=== PATIENT | male | born 1960 | race Caucasian/White ===

== ENCOUNTER 2019-12-31 15:12 | Outpatient (CLI) | payer OTHER, SELFPAY ==
--- NOTE | ~2019-12-31 | US_ITS ---
US soft tissue groin RT 12/31/2019 15:39 Indication: History of pseudoaneurysm status post repair. Pain at scar site. Procedure: High-resolution Limited ultrasound of the right groin Comparison: No prior studies for comparison. Findings: Normal heterogeneous soft tissues without evidence for pseudoaneurysm, hernia or lymphadeno diego. No abnormal fluid collections. Impression: 1: Normal limited ultrasound of the right groin. Reviewed, dictated and finalized at location A. Impression: 1: Normal limited ultrasound of the right groin.
== END 2019-12-31 15:13 | disposition home or self-care (01) ==
LOC: ANHIMG 15:13
PROVIDERS: PCP Internal Medicine; Visit Provider Nurse Practitioner Adult Health
DX: Z86.79 Personal history of other diseases of the circulatory system (principal)
CPT/HCPCS: 76882

== ENCOUNTER 2020-01-13 01:17 | Outpatient (CLI) | payer OTHER, SELFPAY ==
[2020-01-13 18:41] LABS: SARS-CoV-2 RNA PCR Negative
== END 2020-01-13 01:18 | disposition home or self-care (01) ==
LOC: ANHCOVIDDT 01:18
PROVIDERS: PCP Internal Medicine; Visit Provider Specialist
DX: Z01.812 Encounter for preprocedural laboratory examination (principal); Z11.59 Encounter for screening for other viral diseases
CPT/HCPCS: 87635; C9803; U0003

== ENCOUNTER 2020-01-15 05:53 | Day surgery (SDC) | payer OTHER, SELFPAY ==
[2020-01-14 15:45] VITALS: BMI 31.6
[2020-01-15] VITALS (12 sets, daily range): BP systolic 118–160; BP diastolic 68–87; PULSE 55–74; RESP 14–20; TEMP 36.5–36.6; O2SAT 94–100
[2020-01-15 08:13] LABS: Basophils Absolute Auto 0.1 K/mm3 (0.0-0.1); Eosinophils Absolute Auto 0.1 K/mm3 (0-0.3); Eosinophils Percent Auto 1.6 % (0-4.4); Hematocrit 40.5 % (42.0-52.0); Immature Granulocyte Absolute 0.02 K/mm3 (0.00-0.031); Immature Granulocyte Percent A 0.4 % (0-0.5); Lymphocytes Absolute Auto 0.66 K/mm3 (0.9-3.2); Lymphocytes Percent Auto 13.6 % (18.3-44.2); Mean Corpuscular HGB Conc 34.6 g/dl (32-36); Mean Corpuscular Hemoglobin 32.3 pg (26-34); Mean Corpuscular Volume 93.3 fl (80-100); Mean Platelet Volume 9.3 fl (7.4-10.4); Monocytes Absolute Auto 0.4 K/mm3 (0.1-0.6); Monocytes Percent Auto 8.6 % (2.6-8.5); Neutrophils Absolute Auto 3.6 K/mm3 (1.3-6.7); Neutrophils Percent Auto 74.8 % (45.5-73.1); Platelet Count Result 216 k/mm3 (150-375); Red Blood Count 4.34 M/mm3 (4.6-6.20); Red Cell Distribution Width 13.2 % (11.5-14.5); White Blood Count 4.9 K/mm3 (4.5-10.0)
[2020-01-15 08:24] LABS: Prothrombin Time 12.7 Seconds (11.1-14.7)
--- NOTE | 2020-01-15 08:26 | SUR.PREOP ---
0750-pt presents to the [facility] for an LHC. No distress noted. AOx4. Pt has complained of feeling like his heart is beating out of his chest this morning but no CP noted. PIV started and labs obtained and sent per order. Pt has hx of CABG as well as femoral artery surgery with large scar in right femoral access area. informed. Pt has taken Prednisone and Benadryl this morning. Will continue to monitor.
[2020-01-15 08:28] LABS: Blood Urea Nitrogen 12 mg/dL (9-20); Calcium 9.4 mg/dL (8.4-10.2); Carbon Dioxide 25 mmol/L (22-30); Chloride 106 mmol/L (98-107); Estimated CRCL calculation 97 ml/min; Estimated Glomerular Filt Rate > 60; Glucose 119 mg/dL (75-110); Potassium 4.6 mmol/L (3.4-5.0); Sodium 139 mmol/L (137-145)
--- NOTE | 2020-01-15 10:38 | WPDMODSED ---
Moderate Sedation Note-Pt Data Patient Data Diagnosis: coronary artery disease with previous surgical and percutaneous revascularization recurrent chest pain symptoms concerning for ischemia Present Complaint: 59-year-old patient with history of high-grade disease in the proximal LAD and distal RCA. In 2017 he was referred for surgical revascularization. A HILL was placed to the LAD and a vein graft to the RPDA. A non diseased RPL branch was stented due to recurrent symptoms in 2018. The patient has been doing well recently and now has recurrence of chest pain /to fatigue and shortness of breath once again raising concern regarding the status of his coronary disease. He also has history of atrial fibrillation for which she was treated medically and finally underwent pulmonary vein isolation at another institution and he is successfully maintaining sinus rhythm. Procedure to be performed/Plan: Follow-up coronary angiography, vein graft and AMANDA angiography. Allergies Allergy/AdvReac Type Severity Reaction Status Date / Time demeclocycline Allergy Mild hives Verified 10/11/19 15:03 Iodinated Contrast Media Allergy Mild Redness of Verified 10/11/19 15:03 Skin tramadol AdvReac Severe Anxiety Verified 10/11/19 15:03 Home Medications Medication Instructions Recorded Confirmed Type levothyroxine 50 mcg tablet 50 mcg PO DAILY #90 tablet 08/12/19 01/14/20 Rx alprazolam 0.5 mg tablet 0.5 mg PO BID PRN #60 tablet 08/22/19 01/14/20 Rx atorvastatin 40 mg tablet 40 mg PO DAILY 09/04/19 01/14/20 History clopidogrel 75 mg tablet 75 mg PO DAILY 09/04/19 01/14/20 History furosemide 40 mg tablet 40 mg PO QAM 09/04/19 01/14/20 History nitroglycerin 0.4 mg sublingual 0.4 mg SUBLINGUAL Q5M 09/04/19 01/14/20 History tablet potassium chloride 20 mEq 20 meq PO DAILY 09/04/19 01/14/20 History tablet,extended release rivaroxaban 20 mg tablet 20 mg PO DAILY 09/04/19 01/14/20 History lisinopril 10 mg tablet 10 mg PO DAILY #30 tablet 09/05/19 01/14/20 Rx escitalopram oxalate 20 mg tablet 20 mg PO DAILY #30 tablet 10/11/19 01/14/20 Rx pantoprazole 40 mg tablet,delayed 40 mg PO QAM 10/11/19 01/14/20 History release budesonide-formoterol HFA 160 2 puff INHALATION Q12H #10.2 gm 11/18/19 01/14/20 Rx mcg-4.5 mcg/actuation aerosol inhaler fluticasone propionate 50 2 spray NASAL DAILY PRN #15.8 ml 12/04/19 01/14/20 Rx mcg/actuation nasal spray,suspension valacyclovir 1 gram tablet 2,000 mg PO Q12H #30 tablet 12/04/19 01/14/20 Rx trazodone 50 mg PO QPM 01/14/20 01/14/20 History Current Medications: Active Medications Sodium Chloride (Normal Saline Iv) 500 mls @ 100 mls/hr IV CONT .Q5H LEMUEL Sedation/Anesthesia: No previous sedation/anesthesia problems (including family history). [facility] Social History Social History Smoking status: Never smoker Second hand tobacco smoke exposure: Yes Alcohol intake: current Drinks per week: 1 Substance use: never Living arrangements: with family Gender identity (if verbalized by the patient): Male Spiritual care concerns: No Mod Sed Physical Exam Physical Exam Pre Procedural Exam: Normal: Appearance, Neck, Throat, Airway, Lungs, Heart Size, Heart Rate, Heart Rhythm, Neuro Exam and Extremities Hours since solid foods: 12 Hours since liquid intake: 12 Internal Medicine - PN: Obj Da Vital Signs Vital Signs: Vital Signs - 24 hr 01/15/20 08:35 Temperature 36.6 C Pulse Rate 65 Respiratory Rate 14 Blood Pressure 145/68 H Pulse Oximetry 99 Meds/Results Medications: Active Medications Generic Name Dose Route Start Last Admin Trade Name Freq PRN Reason Stop Dose Admin Sodium Chloride 500 mls @ 100 mls/hr 01/15/20 06:00 Normal Saline Iv IV CONT .Q5H LEMUEL Labs CBC & Chem 7: 01/15/20 08:07 01/15/20 08:07 Labs: Laboratory Results - last 24 hr 01/15/20 01/15/20
--- NOTE | 2020-01-15 11:42 | WPDCARDPROC ---
Cardiac Cath Procedure Note Date of procedure:: 01/15/20 Performing physician:: Nirmal Santa MD Indication:: it chest pain primarily with exertion of recent onset known coronary artery disease previous surgical and percutaneous revascularization Brief clinical history:: this is a 59-year-old man with coronary artery disease diagnosed several years ago. Because of proximal LAD disease and distal disease involving the RCA bifurcation CABG was recommended. He received an internal mammary graft to the LAD as well as a vein graft to the RPDA. The RPL branch which was involved with the area of the disease was not grafted. The year after surgery because of symptoms of ongoing chest pain the are PL lesion was stented through the [place] right coronary artery. He did have a follow-up angiogram about 2 years ago that demonstrated him to be well revascularized. Patient also has a history of problematic atrial fibrillation for which he has undergone ablation with pulmonary vein isolation and is maintaining sinus rhythm. Procedure Procedure performed:: Follow-up coronary angiography vein graft angiography internal mammary graft angiography left ventriculography Sedation/Medication given:: fentanyl 50 mg Versed 4 mg case start time 10:58 a.m. case end time 11:16 a.m. sedation provided byJimi Barr RN, trained observer Access site:: right femoral artery Estimated blood loss:: 15 cc Procedure note:: patient was brought to the cardiac catheterization lab in the postabsorptive state the right femoral triangle was prepared in the normal fashion anesthesia was given 1% lidocaine infiltrated locally. Using the modified Seldinger technique a 5 Somali sheath was placed into the right femoral artery. After this left heart catheterization was carried out. I utilized a 5 Somali angled pigtail catheter to measure left-sided hemodynamics and to injected LV g in the BURTON projection. Following this standard 5 Somali FL4 catheter was used to engage inject the left coronary artery. A 5 Somali JR4 catheter was used to engage inject the right coronary artery, the vein graft to the RCA and the HILL. The cine angiograms were then reviewed. The case was terminated. Use taken to the holding area for manual sheath removal there were no signs of any procedural complications a left chemical laboratory chief with no evidence of a groin hematoma. Findings:: Central aortic pressure 142/80 left ventricle 142 over 3 end-diastolic pressure 12 there is no gradient on pullback across the aortic valve. the left ventricle is normal in size all segments contract appropriately there are no wall motion abnormalities the ejection fraction is visually estimated to be 60%. Left main coronary artery is widely patent the LAD is 100% occluded just after its origin save for a very small high septal perforating branch. The circumflex is a medium caliber artery giving rise to 2 marginal branches. There is minimal luminal irregularity in the circumflex but otherwise the vessel is angiographically non disease. The right coronary artery is a large caliber vessel dominant to the posterior circulation. There are mild luminal irregularities in the trunk of the RCA but no flow-limiting disease is identified. The RPDA receives very little antegrade flow with competitive filling being seen. The RPL branch has a visible previously deployed stent with clear step-up and step-down with excellent deployment no loss of lumen there is good LEX 3 flow in the RPL system. The selective injection of the saphenous vein graft to the right coronary shows that it is a medium caliber segment of saphenous vein. There are mild irregularities in the vein but there are no signs of degenerative atherosclerosis. Its distal anastomosis looks excellent and it fills the RPDA nicely. Selective injection of the left internal mammary artery demonstrates it to be a large caliber segment of AMANDA its course is somewha
--- NOTE | 2020-01-15 17:53 | SUR.PHASEII ---
1745-pt given D/C orders and instructions. Questions answered and verbalized understanding. AOx4. Groin soft and non-tender, no evidence of bleeding or hematoma noted. Strong right pedal pulse noted. Taken via wheelchair to waiting vehicle. No distress noted or verbalized at time of departure.
== END 2020-01-15 17:45 | disposition home or self-care (01) ==
PROVIDERS: PCP Internal Medicine; Visit Provider Specialist
PROC: 4A023N7 Measurement of Cardiac Sampling and Pressure, Left Heart, Percutaneous Approach (ICD-10-PCS; CPT 93452; principal; 2020-01-15 08:30)
DX: I25.10 Atherosclerotic heart disease of native coronary artery without angina pectoris (principal); R07.9 Chest pain, unspecified; I48.0 Paroxysmal atrial fibrillation; Z95.5 Presence of coronary angioplasty implant and graft; Z95.1 Presence of aortocoronary bypass graft; Z79.02 Long term (current) use of antithrombotics/antiplatelets; Z79.01 Long term (current) use of anticoagulants
CPT/HCPCS: 36415; 80048; 85025; 85610; 93458; C1887; C1894; J1644; J2250; J3010; J7040

== ENCOUNTER 2020-05-25 12:40 | Emergency (ER) | payer OTHER, SELFPAY ==
--- NOTE | ~2020-05-25 | XR_ITS ---
EXAMINATION: XR chest 2V EXAM DATE: 05/25/2020 13:34 INDICATION: Syncope. TECHNIQUE: Frontal and lateral projections of the chest obtained and reviewed. Comparison is made to prior examination from 09/27/2018. FINDINGS: Sternotomy wires are present without findings to suggest sternal dehiscence. Right-sided g ranulomata. The lungs are otherwise clear. There are no pleural effusions. The cardiomediastinal si lhouette is within normal limits. There is no pneumothorax suspected. The bones and soft tissues ar e unremarkable. IMPRESSION: No acute cardiopulmonary findings. Reviewed, dictated and finalized at location B. EURISER OPERATOR
--- NOTE | ~2020-05-25 | CT_ITS ---
EXAMINATION: CT cervical spine wo con EXAM DATE: 05/25/2020 13:22 INDICATION: Syncope. Neck pain. TECHNIQUE: Spiral CT of the cervical spine was performed without contrast. Axial images were reviewe d. Coronal and sagittal reformatted images were also reviewed. The dose-length product (DLP) for thi s examination was 491.39 mGy-cm. The exposure was tailored according to patient size (auto mA exposu re control), and iterative reconstruction (ASIR) was used as additional dose reduction technique. ere is no prior study for comparison. FINDINGS: There is no evidence of acute cervical fracture. The odontoid process is intact. Pre-dens space is normal. Prevertebral soft tissue is normal. There are no soft tissue abnormalities identi fied. There is no disc space widening or traumatic vertebral body subluxation suspected. Moderate t o severe cervical spondylosis. A detailed level by level evaluation of spondylosis can be added as a ddendum if requested. IMPRESSION: 1. No acute cervical fracture. 2. Advanced cervical spondylosis. Reviewed, dictated and finalized at location B. CT SUPPORT STAFF
--- NOTE | ~2020-05-25 | CT_ITS ---
EXAMINATION: CT brain wo con DATE: 05/25/2020 13:21 INDICATION: Syncope. TECHNIQUE: Computed tomography (CT) of the head was performed without intravenous contrast. The mA wa s adjusted according to patient size. Iterative reconstruction technique was employed. The dose-lengt h product was 605.33 mGy-cm. COMPARISON: Head CT 09/27/2018 FINDINGS: There is no intracranial hemorrhage, acute infarction, or abnormal intracranial mass lesion . The ventricles are normal in size. There is mild mucosal thickening in the paranasal sinuses. There are surgical changes of the paranasal sinuses. The mastoid air cells are normal. The orbits are norm al. IMPRESSION: 1. Normal brain. Reviewed, dictated and finalized at location A. NEEDLE MACHINE OPERATOR IMPRESSION: 1. Normal brain.
--- NOTE | ~2020-05-25 | CT_ITS ---
EXAMINATION: CT lumbar spine wo con DATE: 05/25/2020 13:22 INDICATION: Low back pain. Fall. TECHNIQUE: Computed tomography (CT) of the lumbar spine was performed without intravenous contrast. A utomated exposure control and iterative reconstruction technique were employed. The dose-length produ ct was 1159.65 mGy-cm. COMPARISON: None FINDINGS: There is a 1.6 cm cyst in right kidney. Bone alignment is normal. Vertebral body heights ar e normal. There is moderately decreased disc height at L4-L5 with endplate remodeling. The following disc levels are specifically discussed: L1-L2: The disc does not extend beyond the endplate margin. There is mild bilateral facet joint osteo arthritis. There is no neural foraminal stenosis. There is no central canal stenosis. L2-L3: The disc is mildly bulging. There is severe right and moderate left facet joint osteoarthritis . There is mild bilateral neural foraminal stenosis. There is no central canal stenosis. L3-L4: The disc is bulging. There is severe right and moderate left facet joint osteoarthritis. There is moderate bilateral neural foraminal stenosis. There is moderate central canal stenosis. L4-L5: The disc is bulging. There is severe bilateral facet joint osteoarthritis. There is moderate b ilateral neural foraminal stenosis. There is moderate central canal stenosis. L5-S1: The disc is bulging. There is severe bilateral facet joint osteoarthritis. There is mild bilat eral neural foraminal stenosis. There is mild central canal stenosis. IMPRESSION: 1. No fracture. 2. Moderate lumbar spondylosis. Reviewed, dictated and finalized at location A. COMMUNICATIONS SPECIALIST
[2020-05-25 12:42] VITALS: BP 165/91; PULSE 66; RESP 17; TEMP 36.3; O2SAT 100
--- NOTE | 2020-05-25 12:48 | ECG_ITS ---
Measurements Intervals [place] Rate: 64 P: 41 VT: 171 QRS: 4 QRSD: 113 T: 61 QT: 436 QTc: 450 Interpretive Statements SINUS RHYTHM INTRAVENTRICULAR CONDUCTION DELAY BORDERLINE R WAVE PROGRESSION, ANTERIOR LEADS BORDERLINE ST-T WAVE ABNORMALITY- HIGH LATERAL LEADS BORDERLINE ECG Electronically Signed On 05-25-2020 13:27:28 MANAGER OF WAREHOUSE by Jairo Phelps D.O.
--- NOTE | 2020-05-25 12:52 | ED.SYNCOPE ---
HPI - Syncope General Chief Complaint: Syncope Stated Complaint: Passed out Sat, Hit Head Time Seen by Provider: 05/25/20 12:51 Source: patient Mode of arrival: ambulatory Limitations: no limitations History of Present Illness HPI narrative: Patient is a 60-year-old gentleman with a history of coronary artery disease, atrial fibrillation on Xarelto, who presents for evaluation of fall and a head injury. Patient states that Monday night he was lying down watching television, when he stood up, attempted to walk to his bedroom, and passed out. Patient states he remembers waking up on the floor and that he had hit his head quite hard. Patient reports feeling mentally a bit foggy, but family did not report any slurred speech, or permanent altered mental status. Patient denies any current vision changes, nausea or vomiting. He reports soreness in his tailbone, head and neck. He denies any current numbness or weakness. Given his anticoagulation, the cardiology office the patient follows with advised him to come to an emergency department. Patient denies any chest pain or shortness of breath. Patient does endorse that he sat on the side of the couch before he stood up to ensure that he would not pass out. Patient states he has no history of syncope in the past. Related Data Home Medications Medication Instructions Recorded Confirmed atorvastatin 40 mg tablet 40 mg PO DAILY 09/04/19 01/14/20 clopidogrel 75 mg tablet 75 mg PO DAILY 09/04/19 01/14/20 furosemide 40 mg tablet 40 mg PO QAM 09/04/19 01/14/20 nitroglycerin 0.4 mg sublingual 0.4 mg SUBLINGUAL Q5M 09/04/19 01/14/20 tablet potassium chloride 20 mEq 20 meq PO DAILY 09/04/19 01/14/20 tablet,extended release rivaroxaban 20 mg tablet 20 mg PO DAILY 09/04/19 01/14/20 pantoprazole 40 mg tablet,delayed 40 mg PO QAM 10/11/19 01/14/20 release trazodone 50 mg PO QPM 01/14/20 01/14/20 Allergies Allergy/AdvReac Type Severity Reaction Status Date / Time demeclocycline Allergy Mild hives Verified 05/25/20 12:45 Iodinated Contrast Media Allergy Mild Redness of Verified 05/25/20 12:45 Skin tramadol AdvReac Severe Anxiety Verified 05/25/20 12:45 Review of Systems Review of Systems: Narrative: CONSTITUTIONAL: Denies fever, chills, or sweats. EYES: Denies visual changes, redness, or discharge. ENT: Denies rhinorrhea, congestion, sore throat, or otalgia. CARDIOVASCULAR: Denies chest pain, palpitations, or edema. RESPIRATORY: Denies cough or dyspnea. GASTROINTESTINAL: Denies abdominal pain, nausea, vomiting, or diarrhea. GENITOURINARY: Denies dysuria or hematuria. SKIN: Denies rash or itching. MUSCULOSKELETAL: Reports lower back pain, denies knee or elbow pain NEUROLOGIC: Reports headache, denies numbness or weakness PMFSH Family History Family History Sibling Family history of malignant neoplasm of breast in first degree relative Mother Family history of malignant neoplasm of breast in first degree relative Patient's mother is Father Patient's father is Family history of heart disease in male family member before age 55 Social History Social History Smoking status: Never smoker Second hand tobacco smoke exposure: Yes Alcohol intake: current Drinks per week: 1 Substance use: never Gender identity (if verbalized by the patient): Male Spiritual care concerns: No Exam Narrative: Exam Narrative: Nursing note and vitals reviewed. CONSTITUTIONAL: The patient appears well-developed and well-nourished. No distress. HEAD: Normocephalic and atraumatic. No hematoma or contusion. EYES: 2+ PERRL, EOMI, normal conjunctiva, anicteric EARS: External ears clear bilaterally, no hemotympanum MOUTH: OP clear, no erythema, exudates NECK: midline trachea, supple, FROM. No midline cervical spinal tenderness. CARDIOVASCULAR: Normal ra
[2020-05-25 13:16] VITALS: PULSE 78
[2020-05-25 13:16] LABS: Basophils Absolute Auto 0.1 K/mm3 (0.0-0.1); Basophils Percent Auto 0.8 % (0.2-1.2); Eosinophils Absolute Auto 0.2 K/mm3 (0-0.3); Eosinophils Percent Auto 3.1 % (0-4.4); Hematocrit 40.2 % (42.0-52.0); Hemoglobin 14.2 g/dL (14.0-18.0); Immature Granulocyte Absolute 0.01 K/mm3 (0.00-0.031); Immature Granulocyte Percent A 0.2 % (0-0.5); Lymphocytes Absolute Auto 1.35 K/mm3 (0.9-3.2); Lymphocytes Percent Auto 22.1 % (18.3-44.2); Mean Corpuscular HGB Conc 35.3 g/dl (32-36); Mean Corpuscular Hemoglobin 33.5 pg (26-34); Mean Corpuscular Volume 94.8 fl (80-100); Mean Platelet Volume 9.3 fl (7.4-10.4); Monocytes Absolute Auto 0.6 K/mm3 (0.1-0.6); Monocytes Percent Auto 9.7 % (2.6-8.5); Neutrophils Absolute Auto 3.9 K/mm3 (1.3-6.7); Neutrophils Percent Auto 64.1 % (45.5-73.1); Platelet Count Result 245 k/mm3 (150-375); Red Blood Count 4.24 M/mm3 (4.6-6.20); Red Cell Distribution Width 13.2 % (11.5-14.5); White Blood Count 6.1 K/mm3 (4.5-10.0)
[2020-05-25 13:26] LABS: INR 1.6; Partial Thromboplastin Time 31.5 SECONDS (22.3-36.8); Prothrombin Time 19.3 Seconds (11.1-14.7)
[2020-05-25 13:29] LABS: Anion Gap 9 mmol/L (8-16); Blood Urea Nitrogen 13 mg/dL (9-20); Calcium 9.2 mg/dL (8.4-10.2); Carbon Dioxide 27 mmol/L (22-30); Chloride 102 mmol/L (98-107); Estimated CRCL calculation 95 ml/min; Estimated Glomerular Filt Rate > 60; Glucose 112 mg/dL (75-110); Potassium 3.8 mmol/L (3.4-5.0); Sodium 138 mmol/L (137-145)
[2020-05-25 13:58] LABS: D Dimer 0.27 ug/mL (<0.48)
[2020-05-25 14:06] LABS: Troponin I < 0.012 ng/mL (0.000-0.034)
[2020-05-25 14:34] VITALS: BP 130/74; PULSE 54; RESP 16; O2SAT 98
== END 2020-05-25 14:42 | disposition home or self-care (01) ==
PROVIDERS: Emergency Provider Emergency Medicine; PCP Internal Medicine
DX: R55 Syncope and collapse (principal); I25.10 Atherosclerotic heart disease of native coronary artery without angina pectoris; I48.91 Unspecified atrial fibrillation; Z79.01 Long term (current) use of anticoagulants; Z77.22 Contact with and (suspected) exposure to environmental tobacco smoke (acute) (chronic); M47.816 Spondylosis without myelopathy or radiculopathy, lumbar region; M47.812 Spondylosis without myelopathy or radiculopathy, cervical region
CPT/HCPCS: 36415; 70450; 71046; 72125; 72131; 80048; 84484; 85025; 85380; 85610; 85730; 93005; 99284

== ENCOUNTER 2021-03-30 12:56 | Emergency (ER) | payer OTHER, SELFPAY ==
[2021-03-30 13:19] VITALS: BP 160/82; PULSE 72; RESP 20; TEMP 36.2; O2SAT 99
[2021-03-30 13:35] LABS: Basophils Absolute Auto 0.1 K/mm3 (0.0-0.1); Basophils Percent Auto 1.4 % (0.2-1.2); Eosinophils Absolute Auto 0.3 K/mm3 (0-0.3); Eosinophils Percent Auto 3.5 % (0-4.4); Hematocrit 40.4 % (42.0-52.0); Hemoglobin 13.9 g/dL (14.0-18.0); Immature Granulocyte Absolute 0.04 K/mm3 (0.00-0.031); Immature Granulocyte Percent A 0.6 % (0-0.5); Lymphocytes Absolute Auto 1.09 K/mm3 (0.9-3.2); Lymphocytes Percent Auto 15.4 % (18.3-44.2); Mean Corpuscular HGB Conc 34.4 g/dl (32-36); Mean Corpuscular Hemoglobin 33.4 pg (26-34); Mean Corpuscular Volume 97.1 fl (80-100); Mean Platelet Volume 8.9 fl (7.4-10.4); Monocytes Absolute Auto 0.6 K/mm3 (0.1-0.6); Monocytes Percent Auto 7.9 % (2.6-8.5); Neutrophils Absolute Auto 5.1 K/mm3 (1.3-6.7); Neutrophils Percent Auto 71.2 % (45.5-73.1); Platelet Count Result 237 k/mm3 (150-375); Red Blood Count 4.16 M/mm3 (4.6-6.20); White Blood Count 7.1 K/mm3 (4.5-10.0)
[2021-03-30 13:44] LABS: INR 1.8; Prothrombin Time 20.4 Seconds (11.1-14.7)
[2021-03-30 15:26] VITALS: BP 126/80; PULSE 68; O2SAT 98
--- NOTE | 2021-03-30 17:51 | ECG_ITS ---
Measurements Intervals [place] Rate: 60 P: 61 ME: 165 QRS: 6 QRSD: 122 T: 73 QT: 452 QTc: 453 Interpretive Statements SINUS RHYTHM INTRAVENTRICULAR CONDUCTION DELAY DELAYED PRECORDIAL R/S TRANSITION BORDERLINE ST-T WAVE ABNORMALITY- HIGH LATERAL LEADS BASELINE ARTIFACT- I, III, AVR, AVL BORDERLINE ECG Electronically Signed On 03-30-2021 20:21:49 CDT by Jairo Phelps D.O.
[2021-03-30 17:55] VITALS: BP 124/91; PULSE 68; RESP 18; TEMP 36.3; O2SAT 98
[2021-03-30 18:05] LABS: Add Urine Microscopic? YES; Appearance Urine Cloudy (Clear); Bilirubin Urine Negative (Negative); Blood Urine 2+ (Negative); Color Urine Red (Yellow); Glucose Urine UA Negative (Negative); Ketones Urine Negative (Negative); Leukocyte Esterase Ur Negative LEU/UL (Negative); Nitrate Urine Negative (Negative); Protein Urine 2+ mg/dL (Negative); RBC Urine >75 /hpf (0-2); Specific Grav Ur 1.019 (1.001-1.035); Urobilinogen Urine Negative mg/dL (<2.0); WBC Urine 0-3 /hpf
--- NOTE | 2021-03-30 18:07 | ED.MALEGU ---
HPI - Male Genitourinary General Chief complaint: Urogenital-Male Stated complaint: Blood in Urine Time Seen by Provider: 03/30/21 17:33 Source: patient Mode of arrival: ambulatory Limitations: no limitations History of Present Illness HPI Narrative: 61 years old white male presented to the ED with urinary frequency and gradually noticed increase in the amount of blood in the urine. Patient denies any fever, chills, nausea, vomiting, abdominal pain or back pain. Patient on Plavix for coronary stents and Xarelto for atrial fibrillation. Patient had cardiac ablation 2 weeks ago. Currently have normal sinus rhythm. Related Data Home Medications Medication Instructions Recorded Confirmed atorvastatin 40 mg tablet 40 mg PO DAILY 09/04/19 01/12/21 clopidogrel 75 mg tablet 75 mg PO DAILY 09/04/19 01/12/21 furosemide 40 mg tablet 40 mg PO QAM 09/04/19 01/12/21 nitroglycerin 0.4 mg sublingual 0.4 mg SUBLINGUAL Q5M 09/04/19 01/12/21 tablet potassium chloride 20 mEq 20 meq PO DAILY 09/04/19 01/12/21 tablet,extended release Allergies Allergy/AdvReac Type Severity Reaction Status Date / Time demeclocycline Allergy Mild hives Verified 01/12/21 16:31 Iodinated Contrast Media Allergy Mild Redness of Verified 01/12/21 16:31 Skin tramadol AdvReac Severe Anxiety Verified 01/12/21 16:31 Review of Systems Review of Systems: CONSTITUTIONAL: Denies fever, chills, or sweats. EYES: Denies visual changes, redness, or discharge. ENT: Denies rhinorrhea, congestion, sore throat, or otalgia. CARDIOVASCULAR: Denies chest pain, palpitations, or edema. RESPIRATORY: Denies cough or dyspnea. GASTROINTESTINAL: Denies abdominal pain, nausea, vomiting, or diarrhea. GENITOURINARY: Denies dysuria or hematuria. SKIN: Denies rash or itching. MUSCULOSKELETAL: Denies back pain, joint pain, or myalgia. NEUROLOGIC: Denies headache, numbness, or weakness. PSYCHIATRIC: Denies anxiety or depression. 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 Family History Family History Sibling Family history of malignant neoplasm of breast in first degree relative Mother Family history of malignant neoplasm of breast in first degree relative Patient's mother is Father Patient's father is Family history of heart disease in male family member before age 55 Social History Social History Smoking status: Never smoker Second hand tobacco smoke exposure: Yes Alcohol intake: current Drinks per week: 1 Substance use: never Gender identity (if verbalized by the patient): Male Spiritual care concerns: No Exam Narrative: General appearance: Well-developed, well-nourished Skin: Normal color Head: Normocephalic, nontraumatic Eyes: Clear conjunctiva ENT: Oropharynx normal, ears normal, nose normal Neck: Supple, nontender Chest and respiratory: Airway patent, no respiratory distress, no accessory muscle use Heart: Regular rate/rhythm Abdomen: Soft, nontender, no organomegaly, quiet bowel sounds Vascular: Normal peripheral pulses, normal capillary refill. Musculoskeletal: Normal range of motion, nontender back Neurologic: Alert and oriented ?3, JUNIOR ENGINEER is normal as tested, no gross motor deficit Course Course Emergency Course: Stable Consultations Consultation #1: Dr. Mcclellan Stop Plavix, Stop Xarelto for 1 week. Call office for evaluation Date: 03/30/21 Time: 18:54 Vital Signs Vital signs: Vital Signs Temperature 36.2 C L 03/30
[2021-03-30 18:22] LABS: Anion Gap 9 mmol/L (8-16); Blood Urea Nitrogen 20 mg/dL (9-20); Calcium 9.3 mg/dL (8.4-10.2); Carbon Dioxide 25 mmol/L (22-30); Chloride 105 mmol/L (98-107); Estimated CRCL calculation 79 ml/min; Estimated Glomerular Filt Rate > 60; Glucose 128 mg/dL (65-110); Potassium 4.1 mmol/L (3.4-5.0); Sodium 139 mmol/L (137-145)
== END 2021-03-30 19:00 | disposition home or self-care (01) ==
PROVIDERS: Emergency Medicine; Emergency Provider Emergency Medicine; PCP Internal Medicine
DX: R31.9 Hematuria, unspecified (principal); T45.515A Adverse effect of anticoagulants, initial encounter; I48.91 Unspecified atrial fibrillation; Z95.5 Presence of coronary angioplasty implant and graft; Z79.01 Long term (current) use of anticoagulants; Z79.02 Long term (current) use of antithrombotics/antiplatelets; Z77.22 Contact with and (suspected) exposure to environmental tobacco smoke (acute) (chronic); I45.9 Conduction disorder, unspecified; R94.31 Abnormal electrocardiogram [ECG] [EKG]
CPT/HCPCS: 36415; 80048; 81001; 85025; 85610; 93005; 99283

== ENCOUNTER → 2021-04-06 12:49 | Outpatient (CLI) | payer OTHER, SELFPAY ==
--- NOTE | ~2021-04-06 | XR_ITS ---
EXAMINATION: CT abdomen pelvis wo/w con, XR abdomen/kub 1V DATE: 04/06/2021 14:08 INDICATION: Gross hematuria. Right upper quadrant abdominal pain. TECHNIQUE: 1. Computed tomography (CT) of the abdomen and pelvis was performed without intravenous contrast. CT of the abdomen and pelvis was then performed with a total of 130 mL Omnipaque-350 intravenous contras t using a double-bolus technique for simultaneous opacification of the renal parenchyma and renal col lecting system. Automated exposure control and iterative reconstruction technique were employed. The dose-length product was 2431.13 mGy-cm. 2. AP supine view of the abdomen and pelvis was obtained on 2 radiographs. COMPARISON: None FINDINGS: CT UROGRAM: Lung bases are clear. Mild cardiomegaly. Small amount of atherosclerotic coronary artery calcificatio n along the right coronary artery and postoperative change of prior median sternotomy and coronary ar anthony bypass grafting to the right coronary artery. No pericardial or pleural effusion. Small sliding- type hiatal hernia with postoperative change of prior Lorie fundoplication. Scattered small hepatic and splenic calcifications consistent with old granulomatous disease. Gallbladder, pancreas and bilat eral adrenal glands are normal. Bilateral low-attenuation nonenhancing renal cysts measuring 2 cm on the right and 1.7 cm on the left. Kidneys and ureters are otherwise normal with no urolithiasis, hydr oureteronephrosis or perinephric/ureteral stranding. The proximal to mid right ureter and entire left ureter are opacified on the delayed images and demonstrate no filling defects or urothelial irregula rities along the contrast opacified portions of the bilateral ureters and renal collecting systems. B ladder is normal. Mildly enlarged prostate measuring 4.3 x 3.7 cm. Bowels including the appendix are normal. No free intraperitoneal gas or fluid. No pathologically enlarged abdominal or pelvic lymphade nopathy. ABDOMEN RADIOGRAPH(S): There are few phleboliths in the pelvis. No urolithiasis. No dilated bowel to suggest obstruction. IMPRESSION: 1. Bilateral renal cysts. Otherwise unremarkable bilateral kidneys and ureters with no urolithiasis o r lesions suspicious for malignancy. 2. Small sliding-type hiatal hernia with change of prior Lorie fundoplication. 3. Mild prostatomegaly. Reviewed, dictated and finalized at location B. IMPRESSION: 1. Bilateral renal cysts. Otherwise unremarkable bilateral kidneys and ureters with no urolithiasis or lesions suspicious for malignancy. 2. Small sliding-type hiatal hernia with change of prior Lorie fundoplication. 3. Mild prostatomegaly.
[2021-04-06 13:33] LABS: Estimated Glomerular Filt Rate > 60
== END ==
PROVIDERS: PCP Internal Medicine; Visit Provider Nurse Practitioner Adult Health
DX: R31.0 Gross hematuria (principal); N28.1 Cyst of kidney, acquired; K44.9 Diaphragmatic hernia without obstruction or gangrene; N40.0 Benign prostatic hyperplasia without lower urinary tract symptoms
CPT/HCPCS: 74018; 74178; Q9967

== ENCOUNTER 2021-05-20 01:18 | Day surgery (SDC) | payer OTHER, SELFPAY ==
[2021-05-10 13:09] VITALS: BMI 31.1
[2021-05-20 08:54] VITALS: BP 166/81; PULSE 58; RESP 18; TEMP 36.7; O2SAT 96
[2021-05-20] MEDS: LACTATED RINGERS 1,000 ML 150 ML IV CONT (09:10)
--- NOTE | 2021-05-20 09:15 | WPDGICN ---
Assessment and Plan Assessment and plan (1) Encounter for screening colonoscopy: Code(s): Z12.11 - Encounter for screening for malignant neoplasm of colon Status: Acute Assessment and Plan: Patient presents today for screening colonoscopy. Last exam 10 years ago was unremarkable. Further recommendations will be given after endoscopy. GI Consult Note Consult date/time: 05/20/21 09:15 HPI: Yazan Cordoba is a 61 year old male Presents for screening colonoscopy. Patient's last exam was more than 10 years ago. Patient reports his weight appetite bowel movements are normal. He denies abdominal pain. He has had no bleeding. Past medical history is significant for atherosclerotic heart disease. He underwent bypass surgery 5 years ago. 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 Family History Family History Sibling Family history of malignant neoplasm of breast in first degree relative Mother Family history of malignant neoplasm of breast in first degree relative Patient's mother is Father Patient's father is Family history of heart disease in male family member before age 55 Social History Social History Smoking status: Never smoker Second hand tobacco smoke exposure: Yes Alcohol intake: current Drinks per week: 8 Substance use: never Substance use type: does not use Living arrangements: with family Gender identity (if verbalized by the patient): Male Spiritual care concerns: No Meds Home Medications and Allergies Home Medications Medication Instructions Recorded Confirmed Type atorvastatin 40 mg tablet 40 mg PO DAILY 09/04/19 05/20/21 History clopidogrel 75 mg tablet 75 mg PO DAILY 09/04/19 05/20/21 History furosemide 40 mg tablet 40 mg PO QAM 09/04/19 05/20/21 History nitroglycerin 0.4 mg sublingual 0.4 mg SUBLINGUAL Q5M 09/04/19 05/20/21 History tablet potassium chloride 20 mEq 20 meq PO DAILY 09/04/19 05/20/21 History tablet,extended release fluticasone propionate 50 2 spray NASAL DAILY PRN #15.8 ml 11/23/20 05/20/21 Rx mcg/actuation nasal spray,suspension budesonide-formoterol HFA 160 2 puff INHALATION Q12H #10.2 gm 01/16/21 05/20/21 Rx mcg-4.5 mcg/actuation aerosol inhaler escitalopram oxalate 20 mg tablet 20 mg PO DAILY #90 tablet 02/22/21 05/20/21 Rx alprazolam 0.5 mg tablet 0.5 mg PO BID PRN #60 tablet 04/07/21 05/20/21 Rx finasteride 5 mg tablet 5 mg PO DAILY 04/07/21 05/20/21 History tamsulosin 0.4 mg capsule 0.4 mg PO DAILY 04/07/21 05/20/21 History lisinopril 20 mg tablet 20 mg PO DAILY #90 tablet 04/17/21 05/20/21 Rx trazodone 50 mg tablet See Rx Instructions .ROUTE 04/17/21 05/20/21 Rx .COMPLEX #180 tablet levothyroxine 50 mcg tablet 50 mcg PO DAILY #90 tablet 05/10/21 05/20/21 Rx metoprolol succinate 25 mg PO DAILY 05/10/21 05/20/21 History rivaroxaban [Xarelto] 20 mg PO DAILY 05/10/21 05/20/21 History Allergies Allergy/AdvReac Type Severity Reaction Status Date / Time demeclocycline Allergy Intermediate hives Verified 05/20/21 08:54 Iodinated Contrast Media Allergy Mild Redness of Verified 05/20/21 08:54 Skin tramadol AdvReac Severe Anxiety Verified 05/20/21 08:54 Vital Signs Vital Signs - 24 hr 05/20/21 08:54 Temperature 98.0 F Pulse Rate 58 L Respiratory Rate 18 Blood Pressure 166/81 H Pulse Oximetry 96 Exam Narrative: Physical exam reveals patient be alert. Vital signs stable. HEENT exam is unremarkable. Patient is anicteric. Lungs are clear to auscultation and percussion. Heart is without murmur or extra sounds. Abdominal exam bow
--- NOTE | 2021-05-20 09:23 | WPDANESEPPF ---
Anes - Initial Pre Proc Eval Procedure: Operation Date: 05/20/21 09:30 Proposed Procedures p Screening Colonoscopy - Ethan Rock MD Date/Time: 05/20/21 09:23 Surgeon: Ethan Rock MD Pre Op Diagnosis: neoplasm screening Patient Data Age: 61 Gender: M Height: 1.93 m Weight: 119.2 kg Last Vital Signs Temp 36.7 C 05/20/21 08:54 Pulse 58 L 05/20/21 08:54 Resp 18 05/20/21 08:54 BP 166/81 H 05/20/21 08:54 Pulse Ox 96 05/20/21 08:54 Allergies Allergy/AdvReac Type Severity Reaction Status Date / Time demeclocycline Allergy Intermediate hives Verified 05/20/21 08:54 Iodinated Contrast Media Allergy Mild Redness of Verified 05/20/21 08:54 Skin tramadol AdvReac Severe Anxiety Verified 05/20/21 08:54 Home Medications Medication Instructions Recorded Confirmed Type atorvastatin 40 mg tablet 40 mg PO DAILY 09/04/19 05/20/21 History clopidogrel 75 mg tablet 75 mg PO DAILY 09/04/19 05/20/21 History furosemide 40 mg tablet 40 mg PO QAM 09/04/19 05/20/21 History nitroglycerin 0.4 mg sublingual 0.4 mg SUBLINGUAL Q5M 09/04/19 05/20/21 History tablet potassium chloride 20 mEq 20 meq PO DAILY 09/04/19 05/20/21 History tablet,extended release fluticasone propionate 50 2 spray NASAL DAILY PRN #15.8 ml 11/23/20 05/20/21 Rx mcg/actuation nasal spray,suspension budesonide-formoterol HFA 160 2 puff INHALATION Q12H #10.2 gm 01/16/21 05/20/21 Rx mcg-4.5 mcg/actuation aerosol inhaler escitalopram oxalate 20 mg tablet 20 mg PO DAILY #90 tablet 02/22/21 05/20/21 Rx alprazolam 0.5 mg tablet 0.5 mg PO BID PRN #60 tablet 04/07/21 05/20/21 Rx finasteride 5 mg tablet 5 mg PO DAILY 04/07/21 05/20/21 History tamsulosin 0.4 mg capsule 0.4 mg PO DAILY 04/07/21 05/20/21 History lisinopril 20 mg tablet 20 mg PO DAILY #90 tablet 04/17/21 05/20/21 Rx trazodone 50 mg tablet See Rx Instructions .ROUTE 04/17/21 05/20/21 Rx .COMPLEX #180 tablet levothyroxine 50 mcg tablet 50 mcg PO DAILY #90 tablet 05/10/21 05/20/21 Rx metoprolol succinate 25 mg PO DAILY 05/10/21 05/20/21 History rivaroxaban [Xarelto] 20 mg PO DAILY 05/10/21 05/20/21 History Patient hx anesthesia problems: none Family hx anesthesia problems: none Results Review: All pre-operative results and documents have been reviewed as part of the pre-operative evaluation. [facility] Past Medical History Medical History (Updated 05/20/21 @ 09:25 by Aba Weiss MD) Anxiety Arthritis of right elbow Asthma Coronary artery disease Essential (primary) hypertension Fatigue Heart disease Hematuria Hypothyroidism Increased BMI Neuritis of right ulnar nerve FRANCISCO (obstructive sleep apnea) Thyroid disorder Family History Family History Sibling Family history of malignant neoplasm of breast in first degree relative Mother Family history of malignant neoplasm of breast in first degree relative Patient's mother is Father Patient's father is Family history of heart disease in male family member before age 55 Social History Social History Smoking status: Never smoker Second hand tobacco smoke exposure: Yes Alcohol intake: current Drinks per week: 8 Substance use: never Substance use type: does not use Living arrangements: with family Gender identity (if verbalized by the patient): Male Spiritual care concerns: No Anes - Eval Final PreProcedure Day of Procedure 05/20/21 09:23 Patient weight: obese Heart: regular rate and rhythm Lungs: clear to auscultation and normal air movement Airway: Mallampati scale class II Neurological: alert and oriented Last oral intake: >/= 8 hours ASA classification: III Emergent: no Anesthetic plan: proceed Anesthesia type and monitoring: general GIVS Results Review: All pre-operative results and documents have been reviewed as part of the
[2021-05-20 09:46] VITALS: BP 141/61; PULSE 54; RESP 17; O2SAT 96
[2021-05-20 10:05] VITALS: BP 138/64; PULSE 54; RESP 17; O2SAT 96
[2021-05-20 10:06] VITALS: BP 142/70; PULSE 50; RESP 17; O2SAT 96
== END 2021-05-20 10:15 | disposition home or self-care (01) ==
PROVIDERS: PCP Internal Medicine; Visit Provider Internal Medicine Gastroenterology
PROC: 0DJD8ZZ Inspection of Lower Intestinal Tract, Via Natural or Artificial Opening Endoscopic (ICD-10-PCS; CPT 45378; principal; 2021-05-20 09:30)
DX: Z12.11 Encounter for screening for malignant neoplasm of colon (principal); K64.8 Other hemorrhoids; D12.5 Benign neoplasm of sigmoid colon; D12.3 Benign neoplasm of transverse colon; E03.9 Hypothyroidism, unspecified; M19.90 Unspecified osteoarthritis, unspecified site; J45.909 Unspecified asthma, uncomplicated; I25.10 Atherosclerotic heart disease of native coronary artery without angina pectoris; I11.9 Hypertensive heart disease without heart failure; G47.33 Obstructive sleep apnea (adult) (pediatric); E66.9 Obesity, unspecified; Z68.32 Body mass index [BMI] 32.0-32.9, adult
CPT/HCPCS: 45385; 88305; J2704; J7120

== ENCOUNTER 2021-10-27 13:41 | Observation (INO) | payer OTHER, SELFPAY ==
[2021-10-27] VITALS (11 sets, daily range): BP systolic 133–171; BP diastolic 77–88; PULSE 56–75; RESP 12–18; TEMP 36.7–37.1; O2SAT 96–99; BMI 32.1
--- NOTE | ~2021-10-27 | XR_ITS ---
EXAMINATION: XR chest 2V DATE: 10/27/2021 14:16 INDICATION: Hypertension TECHNIQUE: PA and lateral views of the chest are obtained. COMPARISON: 05/25/2020 FINDINGS: The lungs are free of acute opacities. There is no pleural effusion or pneumothorax. The ca rdiomediastinal silhouette is normal. There is mild thoracic spondylosis. Median sternotomy wires and mediastinal surgical clips are seen, likely from prior coronary artery bypass grafting. Calcified pu lmonary nodules are consistent with old granulomatous disease. IMPRESSION: 1. No acute cardiopulmonary abnormality. Reviewed, dictated and finalized at location F.
--- NOTE | ~2021-10-27 | US_ITS ---
EXAMINATION: US retroperitoneal duplex ltd DATE: 10/28/2021 11:44 INDICATION: hypertension TECHNIQUE: Multiple grayscale, color Doppler, and pulsed Doppler images of the kidneys and renal jhon liberty were obtained. COMPARISON: CT abdomen and pelvis dated 04/06/2021 FINDINGS: The aorta peak systolic velocity is 142 cm/s. The right renal artery peak systolic velocity is 51 cm/ s in the proximal segment, 71 cm/s in the mid segment, and 87 cm/s in the distal segment. The left re nal artery peak systolic velocity is 86 cm/s in the proximal segment, 74 cm/s in the mid segment, and 145 cm/s in the distal segment. IMPRESSION: 1. No Doppler evidence of renal artery stenosis. Reviewed, dictated and finalized at location B.
--- NOTE | ~2021-10-27 | NM_ITS ---
EXAMINATION: NM daniel stress w perfusion DATE: 10/28/2021 11:29 INDICATION: Coronary artery disease presenting with chest pain TECHNIQUE: Rest images were obtained following intravenous administration of 10 mCi Tc99m tetrofosmin (Myoview). The patient was infused intravenously with Lexiscan (Regadenoson). Then, 29 mCi Tc99m tet rofosmin (Myoview) was administered intravenously, and stress images were obtained. Data was reconstr ucted into short axis and horizontal and vertical long axis SPECT images. Gated SPECT images were als o obtained. COMPARISON: None. FINDINGS: There is no definite reversible or fixed perfusion abnormality to suggest ischemia or infar ction. There is normal left ventricular chamber size, wall motion and ejection fraction. Left ventr icular ejection fraction measures 62%. IMPRESSION: 1. Normal myocardial perfusion at rest and during stress. 2. Left ventricular ejection fraction measuring 62%. Reviewed, dictated and finalized at location B.
--- NOTE | 2021-10-27 13:43 | ECG_ITS ---
Measurements Intervals [place] Rate: 72 P: 70 MS: 173 QRS: 16 QRSD: 107 T: 68 QT: 414 QTc: 454 Interpretive Statements SINUS RHYTHM NONSPECIFIC T-WAVE ABNORMALITY COMPARED TO ECG 03/30/2021 18:01:47 T-WAVE ABNORMALITY NOW PRESENT Electronically Signed On 10-27-2021 20:10:41 CDT by Ariadna Mcclellan M.D.
[2021-10-27 14:09] LABS: Basophils Absolute Auto 0.1 K/mm3 (0.0-0.1); Basophils Percent Auto 1.1 % (0.2-1.2); Eosinophils Absolute Auto 0.3 K/mm3 (0-0.3); Hematocrit 42.2 % (42.0-52.0); Hemoglobin 14.5 g/dL (14.0-18.0); Immature Granulocyte Absolute 0.02 K/mm3 (0.00-0.031); Immature Granulocyte Percent A 0.3 % (0-0.5); Lymphocytes Absolute Auto 1.11 K/mm3 (0.9-3.2); Lymphocytes Percent Auto 17.9 % (18.3-44.2); Mean Corpuscular HGB Conc 34.4 g/dl (32-36); Mean Corpuscular Hemoglobin 33.6 pg (26-34); Mean Corpuscular Volume 97.7 fl (80-100); Mean Platelet Volume 9.1 fl (7.4-10.4); Monocytes Absolute Auto 0.5 K/mm3 (0.1-0.6); Monocytes Percent Auto 8.2 % (2.6-8.5); Neutrophils Absolute Auto 4.3 K/mm3 (1.3-6.7); Neutrophils Percent Auto 68.5 % (45.5-73.1); Platelet Count Result 242 k/mm3 (150-375); Red Blood Count 4.32 M/mm3 (4.6-6.20); Red Cell Distribution Width 13.1 % (11.5-14.5); White Blood Count 6.2 K/mm3 (4.5-10.0)
[2021-10-27 14:19] LABS: Alanine Aminotransferase 35 U/L (4-50); Albumin Level 4.6 g/dL (3.5-5.1); Alkaline Phosphatase 89 U/L (38-126); Anion Gap 8 mmol/L (8-16); Aspartate Amino Transferase 41 U/L (17-59); Bilirubin,Total 0.7 mg/dL (0.2-1.3); Blood Urea Nitrogen 21 mg/dL (9-20); Carbon Dioxide 27 mmol/L (22-30); Chloride 105 mmol/L (98-107); Estimated CRCL calculation 81 ml/min; Estimated Glomerular Filt Rate > 60; Glucose 154 mg/dL (65-110); Lipase 68 U/L (23-300); Potassium 3.7 mmol/L (3.4-5.0); Sodium 140 mmol/L (137-145)
[2021-10-27 14:20] LABS: INR 1.4; Partial Thromboplastin Time 31.7 SECONDS (22.3-36.8); Prothrombin Time 16.8 Seconds (11.1-14.7)
[2021-10-27 14:31] LABS: Troponin I < 0.012 ng/mL (0.000-0.034)
--- NOTE | 2021-10-27 15:29 | ED.CHESTPAIN ---
HPI - Chest Pain General Chief Complaint: Chest Pain Stated Complaint: high blood pressure, chest pain Time Seen by Provider: 10/27/21 15:27 Source: patient Mode of arrival: ambulatory Limitations: no limitations History of Present Illness HPI narrative: Patient is a 59-year-old male complaining of chest pain, midsternal, pressure, 6 out of 10, nonradiating accompanied by elevated blood pressure that started today while at work. Patient denies any shortness of breath, abdominal pain, nausea, vomiting, diaphoresis, fever or chills. Related Data Home Medications Medication Instructions Recorded Confirmed atorvastatin 40 mg tablet 40 mg PO DAILY 09/04/19 07/20/21 furosemide 40 mg tablet 40 mg PO QAM 09/04/19 07/20/21 nitroglycerin 0.4 mg sublingual 0.4 mg SUBLINGUAL Q5M 09/04/19 07/20/21 tablet potassium chloride 20 mEq 20 meq PO DAILY 09/04/19 07/20/21 tablet,extended release finasteride 5 mg tablet 5 mg PO DAILY 04/07/21 07/20/21 tamsulosin 0.4 mg capsule 0.4 mg PO DAILY 04/07/21 07/20/21 metoprolol succinate 25 mg PO DAILY 05/10/21 07/20/21 rivaroxaban [Xarelto] 20 mg PO DAILY 05/10/21 07/20/21 aspirin 81 mg tablet,delayed 81 mg PO DAILY 08/03/21 release Allergies Allergy/AdvReac Type Severity Reaction Status Date / Time demeclocycline Allergy Intermediate hives Verified 10/27/21 15:42 Iodinated Contrast Media Allergy Mild Redness of Verified 10/27/21 15:42 Skin tramadol AdvReac Severe Anxiety Verified 10/27/21 15:42 Review of Systems Review of Systems: All systems reviewed & are unremarkable except as noted in HPI and below Constitutional: Constitutional: Denies body ache(s), Denies chills, Denies excessive sweating, Denies fatigue, Denies fever(s), Denies headache(s), Denies lethargy, Denies malaise, Denies weakness and Denies weight loss Eyes: Eyes: Denies blurry vision, Denies change in vision and Denies loss of vision ENT: Denies dizziness, Denies ear discharge, Denies headache(s), Denies lip swelling, Denies epistaxis, Denies nasal congestion, Denies neck pain, Denies throat swelling and Denies tongue swelling Cardiovascular: Cardiovascular: Denies diaphoresis, Denies rapid heart rate, Denies edema, Denies irregular heart rhythm, Denies lightheadedness, Denies palpitations, Denies dyspnea and Denies dyspnea on exertion Respiratory: Respiratory: Denies chest congestion, Denies cough, Denies hemoptysis, Denies dyspnea and Denies dyspnea on exertion Gastrointestinal: Gastrointestinal: Denies abdominal pain, Denies melena, Denies hematochezia, Denies diarrhea, Denies nausea, Denies vomiting and Denies hematemesis Musculoskeletal: Musculoskeletal: Denies abnormal gait, Denies deformity, Denies joint swelling, Denies limited range of motion, Denies neck pain and Denies numbness Neurologic: Denies Abnormal speech present, Denies abnormal gait, Denies confusion, Denies dizziness, Denies headache(s), Denies focal weakness, Denies loss of vision, Denies numbness, Denies Other visual disturbances, Denies Sensory deficit (Neuro) and Denies weakness Psychiatric: Psychiatric: Denies confusion, Denies depression, Denies auditory hallucinations, Denies homicidal ideation and Denies suicidal ideation Endocrine: Endocrine: Denies cold intolerance, Denies excessive sweating, Denies fatigue, Denies heat intolerance and Denies palpitations Hematologic/Lymphatic: Hematologic/Lymphatic: Denies easy bleeding and Denies easy bruising Allergic/Immunologic: Allergic/Immunologic: Denies lip swelling, Denies throat swelling and Denies tongue swelling PMFSH Past Medical History Medical History Anxiety Arthritis of right elbow Asthma Coronary artery disease Degenerative joint disease of right elbow Depression Essential (primary) hypertension Excessive bleeding Fatigue Heart disease Hematuria Hypothyroidism Increased BMI Knee effusion, right Neuritis of right ulnar nerve
[2021-10-27] MEDS: ASPIRIN 81 MG CHEWABLE TABLET 324 MG PO (15:46)
[2021-10-27 17:08] LABS: Troponin I < 0.012 ng/mL (0.000-0.034)
--- NOTE | 2021-10-27 18:28 | PC.NURSE ---
This patient, Yazan Cordoba, was admitted to IMU Room 211-01. Patient/family oriented to hospital policies and general routines including ID bracelet, bed and alarms, visiting hours, pain management, procedures, bathroom and other care routines, personal items, smoking policy, room service/diet, and visiting hours. Information on how to activate the Rapid Response Team has been discussed. Patient/Family are encouraged to report perceived risks to care and to ask questions if they do not understand what they are told or what they should do.
[2021-10-27 19:49] LABS: Troponin I < 0.012 ng/mL (0.000-0.034)
[2021-10-27] MEDS: traZODone HCL 50 MG TABLET PO (23:15)
[2021-10-27] MEDS: TAMSULOSIN HCL 0.4 MG CAPSULE PO (23:15)
[2021-10-27] MEDS: RIVAROXABAN 20 MG TABLET PO (23:15)
[2021-10-27] MEDS: ZOLPIDEM TARTRATE (*CRX) 5 MG TABLET 10 MG PO (23:16)
[2021-10-27] MEDS: ATORVASTATIN 40 MG TABLET PO (23:16)
[2021-10-27] MEDS: FLUTICASONE/SALMETEROL 115-21 MCG INHALER 1 PUFF 2 PUFF INHALATION (23:18)
--- NOTE | 2021-10-27 23:25 | PM.IMHP ---
H&P: HPI History of Present Illness Date/Time: Patient was placed observation status for expected length of stay less than 23 hours for management, will plan to re-evaluate tomorrow for improvement. 10/27/21 23:25 Chief Complaint: Chest pain Narrative: Mr. Cordoba is a 61-year-old gentleman who presented emergency room with complaints of chest discomfort. Patient has a known history of coronary artery disease status post coronary bypass grafting status post stent placement, with bypass being in 2016 and stent placement being in 2017. Patient states he also has a known history of obstructive sleep apnea and wears his CPAP every single night. Patient states he has a history of atrial fibrillation status post ablation x2 which was performed at [facility]. Patient states today he began having midsternal chest discomfort that was more to the left breast area and went through to his back. Patient denied any associated shortness of breath. Patient states this discomfort would come and go on and off all day. Patient states he does have dyspnea on exertion walking from his car to his job. Patient states he felt like he may have been diaphoretic at times, but he is unsure when that was. Patient states he has also noticed some swelling in his ankles over the last few days and has come and gone. Patient states this morning at 9:30 a.m. he ?did not feel right? and he checked his blood pressure and was quite elevated. Patient states he had already taken his medications so he thought it would come down on his own. Patient states he went to work and 1 of his coworkers told me still did not look ?quite right? and so the patient did check his blood pressure again and it was still elevated. Patient states with the chest discomfort being off and on all day and an elevated blood pressure he decided come to the emergency room for further evaluation. Review of Systems Review of Systems: A 12 point review of systems was completed patient all pertinent positive and negative per HPI the remainder are unremarkable. [facility] Past Medical History Medical History (Updated 10/27/21 @ 17:44 by Bernardo Cortez MD) Anxiety Arthritis of right elbow Asthma Coronary artery disease Degenerative joint disease of right elbow Depression Essential (primary) hypertension Excessive bleeding Fatigue Heart disease Hematuria Hypothyroidism Increased BMI Knee effusion, right Neuritis of right ulnar nerve FRANCISCO (obstructive sleep apnea) Right knee DJD Thyroid disorder Urinary frequency Surgical History Surgical History (Updated 10/27/21 @ 23:33 by Valerie Elder APRN) History of cardiac radiofrequency ablation History of intravascular stent placement Status post ablation of atrial fibrillation Family History Family History Sibling Family history of malignant neoplasm of breast in first degree relative Mother Family history of malignant neoplasm of breast in first degree relative Patient's mother is Father Patient's father is Family history of heart disease in male family member before age 55 Social History Social History Smoking status: Never smoker Second hand tobacco smoke exposure: Yes Alcohol intake: current Drinks per week: 10 Substance use: never Substance use type: does not use Gender identity (if verbalized by the patient): Male Spiritual care concerns: No Meds Home Medications and Allergies Home Medications Medication Instructions Recorded Confirmed Type atorvastatin 40 mg tablet 40 mg PO HS 09/04/19 10/27/21 History furosemide 40 mg tablet 40 mg PO QAM 09/04/19 10/27/21 History nitroglycerin 0.4 mg sublingual 0.4 mg SUBLINGUAL Q5M PRN 09/04/19 10/27/21 History tablet potassium chloride 20 mEq 20 meq PO DAILY 09/04/19 10/27/21 History tablet,extended release bud
[2021-10-28] VITALS (12 sets, daily range): BP systolic 154–170; BP diastolic 74–87; PULSE 55–72; RESP 16–20; TEMP 36.4–37.2; O2SAT 97–100
[2021-10-28 05:11] LABS: Basophils Absolute Auto 0.1 K/mm3 (0.0-0.1); Basophils Percent Auto 1.2 % (0.2-1.2); Eosinophils Absolute Auto 0.4 K/mm3 (0-0.3); Eosinophils Percent Auto 7.1 % (0-4.4); Hematocrit 39.6 % (42.0-52.0); Hemoglobin 13.4 g/dL (14.0-18.0); Immature Granulocyte Absolute 0.02 K/mm3 (0.00-0.031); Immature Granulocyte Percent A 0.4 % (0-0.5); Lymphocytes Absolute Auto 1.13 K/mm3 (0.9-3.2); Lymphocytes Percent Auto 20.1 % (18.3-44.2); Mean Corpuscular HGB Conc 33.8 g/dl (32-36); Mean Corpuscular Hemoglobin 32.9 pg (26-34); Mean Corpuscular Volume 97.3 fl (80-100); Mean Platelet Volume 9.4 fl (7.4-10.4); Monocytes Absolute Auto 0.8 K/mm3 (0.1-0.6); Monocytes Percent Auto 13.3 % (2.6-8.5); Neutrophils Absolute Auto 3.3 K/mm3 (1.3-6.7); Neutrophils Percent Auto 57.9 % (45.5-73.1); Platelet Count Result 222 k/mm3 (150-375); Red Blood Count 4.07 M/mm3 (4.6-6.20); Red Cell Distribution Width 13.2 % (11.5-14.5); White Blood Count 5.6 K/mm3 (4.5-10.0)
[2021-10-28 05:24] LABS: Anion Gap 6 mmol/L (8-16); Blood Urea Nitrogen 22 mg/dL (9-20); Calcium 8.7 mg/dL (8.4-10.2); Carbon Dioxide 26 mmol/L (22-30); Chloride 107 mmol/L (98-107); Estimated CRCL calculation 96 ml/min; Estimated Glomerular Filt Rate > 60; Glucose 113 mg/dL (65-110); Magnesium 2.2 mg/dL (1.6-2.3); Sodium 139 mmol/L (137-145)
[2021-10-28] MEDS: LEVOTHYROXINE SODIUM 50 MCG TABLET PO (06:23)
[2021-10-28] MEDS: FLUTICASONE/SALMETEROL 115-21 MCG INHALER 1 PUFF 2 PUFF INHALATION (08:20)
--- NOTE | 2021-10-28 08:47 | PM.CNCAR ---
Assessment and Plan Assessment and plan (1) Chest discomfort: Code(s): R07.89 - Other chest pain Status: Acute Assessment and Plan: Patient presents with some chest discomfort and left infra scapular discomfort. Symptoms are atypical. Troponins are negative. EKG shows no ischemia. Patient is concerned because this feels similar to his presenting symptoms prior to his CABG and prior to his stent. These symptoms may relate to his elevated blood pressure, but we will evaluate further with a stress Cardiolite. Reassurance (2) Hypertension: Qualifiers: Hypertension type: unspecified Qualified Code(s): I10 - Essential (primary) hypertension Code(s): I10 - Essential (primary) hypertension Status: Acute Assessment and Plan: History of hypertension, recent worsening, no clear etiology. Check a renal artery ultrasound to rule out renal artery stenosis as a cause for worsening hypertension. Adjust BP meds. Probably change lisinopril to: amlodipine/benazepril 5/20 mg daily on discharge (3) Coronary artery disease: Code(s): I25.10 - Atherosclerotic heart disease of [place] coronary artery without angina pectoris Status: Acute Assessment and Plan: History of CABG 2016, history of stent 2017. History of Present Illness History of Present Illness Consult date/time: 10/28/21 08:47 Requesting physician: Bernardo Cortez MD Consult reason: chest pain Reason For Visit: Chest pain, elevated blood pressure Narrative: Yazan Mann is a 61-year-old male with history of CAD whom we are asked to see at the request of Dr. Cortez and the hospitalist for advice and opinion regarding his chest discomfort and hypertension in consultation. Mr. Nix and is followed by Dr. Santa. He has history of CAD presenting with left scapular pain with CABG x2 at [facility] in 2015 (HILL to the Left anterior descending an SVG to the R PDA). He later underwent stenting of the high-grade stenosis of the right posterolateral branch in April 2017. He had intermittent scapular pain and underwent another cardiac catheterization in December 2017 showing patent vessels. He had more symptoms and had another heart catheterization in January 2020 showing chronic occlusions of the Left anterior descending and PDA but a patent AMANDA graft and vein graft. The stent at the opening of the right posterolateral was also patent. The patient also has a history of paroxysmal atrial fibrillation and underwent ablation in July 2018 and again in March 2021. He was last seen by our nurse practitioner in May 2021 still with intermittent left scapular pain. He had hematuria so his clopidogrel was discontinued and he was continued on aspirin and Xarelto. He remained in sinus rhythm. He has done well, no regular exercise but no particular problems with exertion. He has been doing well and his blood pressures been well controlled until recently. When he saw his urologist apparently was elevated. Yesterday when he woke up he felt ?different. ? ?something not right. ? his blood pressure was 187/92 and 2 hours later 180/80-90. He went to work still not feeling well and started having some left-sided discomfort as well as left scapular pain off and on. It felt worse lying back in his chair. Was nonpleuritic yesterday although today it may have a mild pleuritic component. There is some slight change with arm extension. He was feeling lightheaded and mildly nauseated yesterday. He had a little dyspnea walking in from the car. He came to the emergency room to address his unusual hypertension and his chest pain. He has not used any nonsteroidals. There has been no medication changes recently. He remains on a no added salt diet. He has chronic stress from his work, but nothing unusual recently. No increase in weight recently. Review of Systems Constitutional: Constitutional: Reports no additional constituti
[2021-10-28] MEDS: ASPIRIN 81 MG ENTERIC TABLET PO (09:33)
[2021-10-28] MEDS: FINASTERIDE 5 MG TABLET PO (09:33)
[2021-10-28] MEDS: lisinopriL 20 MG TABLET PO (09:34)
[2021-10-28] MEDS: ESCITALOPRAM OXALATE 10 MG TABLET 20 MG PO (09:34)
[2021-10-28] MEDS: METOPROLOL SUCCINATE EXT REL 25 MG TABCR PO (09:34)
[2021-10-28] MEDS: FUROSEMIDE 40 MG TABLET PO (09:34)
[2021-10-28] MEDS: POTASSIUM CHLORIDE 20 MEQ TABLET.ER PO (09:34)
--- NOTE | 2021-10-28 09:44 | EST_ITS ---
Patient Info Name: Yazan Cordoba Age: 61 years : 1960 Gender: Male Ht: 76 in Wt: 264 lbs BSA: 2.56 m2 Heart Rhythm: Sinus Rhythm Exam Date: 10/28/2021 10:37 AM Exam Location: [facility] Stress Patient Status: Outpatient Admit Date: 10/27/2021 Staff Ordering Physician: Ariadna Mcclellan MD Attending Provider: Monico Hernandez MD Exercise Technologist: Val Dunn RDCS Nurse: kerri lizarraga np Exam Type: CA stress daniel w NM Study Info Indications R07.9 - Chest pain, unspecified A regadenoson stress test was performed. Summary 1. No abnormal ST-T wave changes with lexiscan. 2. Nuclear test results to follow. Protocol: Lexiscan Stress ECG Details Stage: REST Duration (min): 6 min : 18 sec HR (bpm): 63 SBP (mmHg): 154 DBP (mmHg): 80 Stage: REST Duration (min): 9 min : 38 sec HR (bpm): 64 SBP (mmHg): 154 DBP (mmHg): 80 Stage: STAGE 1 Duration (min): 1 min : 0 sec HR (bpm): 69 SBP (mmHg): 161 DBP (mmHg): 89 Stage: RECOVERY Duration (min): 1 min : 0 sec HR (bpm): 73 SBP (mmHg): 154 DBP (mmHg): 85 Stage: RECOVERY Duration (min): 2 min : 0 sec HR (bpm): 71 SBP (mmHg): 154 DBP (mmHg): 85 Stage: RECOVERY Duration (min): 3 min : 0 sec HR (bpm): 68 SBP (mmHg): 166 DBP (mmHg): 85 Stage: RECOVERY Duration (min): 3 min : 2 sec HR (bpm): 68 SBP (mmHg): 166 DBP (mmHg): 85 Rest HR: 64 bpm Peak HR: 75 bpm Rest Sys BP: 154 mmHg Peak Sys BP: 166 mmHg Max Pred HR: 158 bpm % Max Pred HR: 47 % Target HR: 134 bpm Max RPP: 12,450 bpm*mmHg BP Response: Patient exhibited a hypertensive response with stress Termination Reason: Completed protocol Cardiac Symptoms: None Total Time: 1 min : 0 sec Rest Hernandes BP: 80 mmHg Peak Hernandes BP: 85 mmHg Total Dose: 0.4 mg Resting ECG Normal sinus rhythm - normal ECG. Stress ECG No abnormal ST/T wave changes with exercise. Arrhythmias None. Report Signatures
[2021-10-28] MEDS: amLODIPine BESYLATE 5 MG TABLET PO (14:07)
--- NOTE | 2021-10-28 16:45 | PM.DS ---
DS: Admitting Diagnosis Discharge Date 10/28/21 Admitting Diagnosis Chest pain DS: Discharge Diagnosis Discharge Diagnosis (1) Chest discomfort: Code(s): R07.89 - Other chest pain Status: Acute (2) Hypertension: Qualifiers: Hypertension type: unspecified Qualified Code(s): I10 - Essential (primary) hypertension Code(s): I10 - Essential (primary) hypertension Status: Acute (3) FRANCISCO (obstructive sleep apnea): Code(s): G47.33 - Obstructive sleep apnea (adult) (pediatric) Status: Acute (4) Coronary artery disease: Code(s): I25.10 - Atherosclerotic heart disease of [place] coronary artery without angina pectoris Status: Acute (5) Asthma: Code(s): J45.909 - Unspecified asthma, uncomplicated Status: Acute (6) Hypothyroidism: Code(s): E03.9 - Hypothyroidism, unspecified Status: Acute DS: Summary Hospital Course Reason for hospitalization: 61yo male with CAD here for chest pain. Please see H&P for details. Hospital Course: Patient presented to the emergency room with complaints of chest pain. Blood pressure initially was normal but climbed to 170/80. EKG showed normal sinus rhythm with nonspecific T-wave changes. These changes were not present at a prior EKG. CBC was normal. INR slightly elevated but patient does take Xarelto chronically. CMP essentially normal. Troponin negative x3. TSH drawn recently was normal. Chest x-ray was clear. Cardiology was consulted. Duplex ultrasound showed no evidence of renal artery stenosis. Patient underwent Lexiscan stress test. Nuclear images showed normal myocardial perfusion at rest and during stress. EF was 62%. Cardiology recommended adding amlodipine which was done. Blood pressure improved. Patient overall did well and had resolution of his chest pain. He was able be discharged home on 10/28/2021. Status at Discharge Cognitive/behavioral status at discharge: Stable Time Spent with Patient Time attestation: Total time spent providing and/or coordinating discharge services: 35 minutes Time spent: Greater than 30 minutes Exam Narrative: AF 98.9 154/8563 16 98% ra Gen - NARD Chest - CTA bilaterally, nml RR CV - RRR S1/S2. Telemetry showing no significant dysrhythmias Abd - Soft, obese, NT, Positive BS Ext - No pedal edema Neuro - Alert and oriented. Nonfocal exam. Psych - Nml mood and affect Skin - Warm and dry DS: Data Data Completed and Pending Labs on day of discharge: Labs from last 24 hours 10/28/21 10/28/21 10/27/21 04:54 04:54 19:13 WBC 5.6 RBC 4.07 L Hgb 13.4 L Hct 39.6 L MCV 97.3 MCH 32.9 MCHC 33.8 RDW 13.2 Plt Count 222 MPV 9.4 Immature Gran % (Auto) 0.4 Neut % (Auto) 57.9 Lymph % (Auto) 20.1 Upson % (Auto) 13.3 H Eos % (Auto) 7.1 H Baso % (Auto) 1.2 Lymph # (Auto) 1.13 Upson # (Auto) 0.8 H Eos # (Auto) 0.4 H Baso # (Auto) 0.1 Abs Immat Gran (auto) 0.02 Absolute Neuts (auto) 3.3 Absolute Nucleated RBC 0.0 Nucleated RBC % 0.0 Sodium 139 Potassium 4.0 Chloride 107 Carbon Dioxide 26 Anion Gap 6 L BUN 22 H Creatinine 1.00 Estim Creat Clear Calc 96 Estimated GFR > 60 Glucose 113 H Calcium 8.7 Magnesium 2.2 Troponin I < 0.012 10/27/21 16:36 WBC RBC Hgb Hct MCV MCH MCHC RDW Plt Count MPV Immature Gran % (Auto) Neut % (Auto) Lymph % (Auto) Upson % (Auto) Eos % (Auto) Baso % (Auto) Lymph # (Auto) Upson # (Auto) Eos # (Auto) Baso # (Auto) Abs Immat Gran (auto) Absolute Neuts (auto) Absolute Nucleated RBC Nucleated RBC % Sodium Potassium Chloride Carbon Dioxide Anion Gap BUN Creatinine Estim Creat Clear Calc Estimated GFR Glucose Calcium Magnesium Troponin I < 0.012 Discharge Plan Discharge Attending physician on discharge: Cr Swift
== END 2021-10-28 17:45 | disposition home or self-care (01) ==
LOC: ANHED 17:44 → ANHIMU 18:01
PROVIDERS: Nurse Practitioner Adult Health; Admitting Provider Family Medicine; Emergency Provider Emergency Medicine; PCP Internal Medicine; Visit Provider Internal Medicine
DX: R07.89 Other chest pain (principal); R06.09 Other forms of dyspnea; I25.10 Atherosclerotic heart disease of native coronary artery without angina pectoris; M79.89 Other specified soft tissue disorders; I11.9 Hypertensive heart disease without heart failure; J45.909 Unspecified asthma, uncomplicated; F41.8 Other specified anxiety disorders; E03.9 Hypothyroidism, unspecified; G47.33 Obstructive sleep apnea (adult) (pediatric); E07.9 Disorder of thyroid, unspecified; Z79.01 Long term (current) use of anticoagulants; Z79.82 Long term (current) use of aspirin; Z79.51 Long term (current) use of inhaled steroids; Z95.1 Presence of aortocoronary bypass graft; Z95.5 Presence of coronary angioplasty implant and graft
CPT/HCPCS: 36415; 71046; 78452; 80048; 80053; 83690; 83735; 84484; 85025; 85610; 85730; 93005; 93017; 93976; 94640; 99285; A9270; A9502; G0378; J2785

== ENCOUNTER → 2022-02-22 01:36 | Outpatient (CLI) | payer OTHER, SELFPAY ==
[2022-02-22 11:32] LABS: SARS-CoV-2 RNA PCR Negative
== END ==
PROVIDERS: PCP Internal Medicine; Visit Provider Internal Medicine
DX: R05.9 Cough, unspecified (principal); Z20.822 Contact with and (suspected) exposure to COVID-19
CPT/HCPCS: C9803; U0003; U0005

== ENCOUNTER 2022-03-03 09:21 | Outpatient (CLI) | payer OTHER, SELFPAY ==
--- NOTE | ~2022-03-03 | XR_ITS ---
EXAMINATION: XR chest 2V DATE: 03/03/2022 09:39 INDICATION: Cough. Congestion. TECHNIQUE: Frontal and lateral views of the chest were obtained. COMPARISON: Chest 2 views 10/27/2021 FINDINGS: Calcified pulmonary nodules and calcified hilar lymph nodes are consistent with old granulo matous disease. No pleural effusion or pneumothorax. The heart size is normal. Median sternotomy wire s and mediastinal surgical clips are seen, likely from prior coronary artery bypass grafting. IMPRESSION: 1. No acute cardiopulmonary disease. Reviewed, dictated and finalized at location A.
== END 2022-03-03 09:22 | disposition home or self-care (01) ==
PROVIDERS: PCP Internal Medicine; Visit Provider Physician Assistant
DX: R05.9 Cough, unspecified (principal)
CPT/HCPCS: 71046

== ENCOUNTER 2023-09-12 13:24 | Outpatient (CLI) | payer OTHER, SELFPAY ==
--- NOTE | ~2023-09-12 | XR_ITS ---
EXAMINATION: XR lg joint inject/asp w image DATE: 09/12/2023 14:19 INDICATION: Right hip arthritis. TECHNIQUE: A time-out was performed to verify the patient's name, date of , and procedure to b e performed. The procedure including the risks, benefits, and alternatives was discussed with the pat ient. Risks discussed included bleeding and infection. The patient understood the risks and agreed to proceed. The skin overlying the right hip joint was prepped and draped in usual sterile fashion. A nesthetic was administered with 1% lidocaine subcutaneously. A 22 G needle was advanced under fluoro scopic guidance into the joint. Subsequently, injectate consisting of 2 mL 0.5% bupivacaine and 1 mL 80 mg/mL Depo-Medrol was instilled. The needle was removed and the entry site was cleaned and dress ed. There were no immediate complications. Fluoroscopy exposure time was 0.1 minutes. The total numb er of images was 1. FINDINGS: Real-time fluoroscopy demonstrates the needle in the right hip joint. Patient's pain prior to procedure:/10. Patient's pain following the procedure: 09/09. IMPRESSION: 1. Fluoroscopy guided right hip joint injection of local anesthetic and steroid with decrease in the patient's presenting pain. Reviewed, dictated and finalized at location A.
== END 2023-09-12 13:25 | disposition home or self-care (01) ==
LOC: ANHIMG 13:29
PROVIDERS: PCP Internal Medicine; Visit Provider Orthopaedic Surgery
DX: M16.11 Unilateral primary osteoarthritis, right hip (principal)
CPT/HCPCS: 20610; 77002; J1040

== ENCOUNTER 2024-01-09 11:52 | Emergency (ER) | payer MEDICARE, OTHER, SELFPAY ==
--- NOTE | 2024-01-09 12:06 | ED.GENADULT ---
HPI - General Adult General Chief complaint: Upper Respiratory Infection Stated complaint: SINUS PRESSURE/MOUTH PAIN/COUGH/TIRED/SOB Time Seen by Provider: 01/09/24 12:31 Source: patient, RN notes reviewed and old records reviewed Mode of arrival: ambulatory Limitations: no limitations History of Present Illness HPI narrative: patient presents to [facility] with complaints of fatigue, sinus pain and pressure. He reports that he has been traveling quite a bit lately, noted that he was extremely fatigued 2-3 days ago. Is sleeping more than normal, has some nasal drainage and slight cough. He reports that his primary care provider did call in a prescription for antibiotics yesterday, he is not feeling any better today and is requesting COVID and influenza testing. Patient has had COVID in the past. Reports that he responded well to Paxil that and if he is positive, would like treatment with same. Related Data Home Medications Medication Instructions Recorded Confirmed atorvastatin 40 mg tablet (Lipitor) 40 mg PO HS 09/04/19 01/09/24 furosemide 40 mg tablet 40 mg PO QAM 09/04/19 01/09/24 nitroglycerin 0.4 mg sublingual 0.4 mg sublingual Q5M PRN Chest 09/04/19 01/09/24 tablet Pain potassium chloride 20 mEq 20 meq PO DAILY 09/04/19 01/09/24 tablet,extended release finasteride 5 mg tablet 5 mg PO DAILY 04/07/21 01/09/24 metoprolol succinate 25 mg 25 mg PO DAILY 05/10/21 01/09/24 tablet,extended release 24 hr rivaroxaban 20 mg tablet (Xarelto) 20 mg PO HS 05/10/21 01/09/24 aspirin 81 mg tablet,delayed 81 mg PO DAILY 08/03/21 01/09/24 release Allergies Allergy/AdvReac Type Severity Reaction Status Date / Time demeclocycline Allergy Intermediate hives Verified 11/13/23 08:00 Iodinated Contrast Media Allergy Mild Redness of Verified 11/13/23 08:00 Skin tramadol AdvReac Severe Anxiety Verified 11/13/23 08:00 Review of Systems Review of Systems: All systems reviewed & are unremarkable except as noted in HPI and below Constitutional: Constitutional: Reports no additional constitutional complaints, Reports body ache(s), Reports chills, Reports daytime sleepiness, Reports fatigue, Denies fever(s), Reports headache(s), Reports lethargy, Reports malaise, Denies night sweats, Denies poor appetite and Denies stops breathing during sleep ENT: Reports system reviewed and no additional complaints, except as documented, Reports facial pain, Reports headache(s), Reports nasal congestion and Reports nasal discharge Cardiovascular: Cardiovascular: Reports no additional cardiovascular complaints Respiratory: Respiratory: Reports no additional respiratory complaints, Denies chest congestion, Reports cough and Denies dyspnea Gastrointestinal: Gastrointestinal: Reports no additional gastrointestinal complaints PMFSH Past Medical History Medical History Afib Anxiety Arthritis of left knee Arthritis of right elbow Arthritis of right hip Arthritis of right knee Asthma Chest discomfort Chest pain due to CAD Coronary artery disease Degenerative joint disease of right elbow Depression Essential (primary) hypertension Excessive bleeding Fatigue Heart disease Hematuria High cholesterol History of hypothyroidism Hypertension Hypothyroidism Increased BMI Knee effusion, right 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 Calvin, [facility] Status post ablation of atrial fibrillation Family History Family History Si
[2024-01-09 12:08] VITALS: BP 158/87; PULSE 60; RESP 16; TEMP 37.2; O2SAT 99
[2024-01-09 12:31] LABS: EDINFLUASCREEN Negative; EDINFLUBSCREEN Negative
== END 2024-01-09 12:54 | disposition home or self-care (01) ==
PROVIDERS: Emergency Provider Nurse Practitioner Family; PCP Internal Medicine
DX: U07.1 COVID-19 (principal); I48.91 Unspecified atrial fibrillation; J45.909 Unspecified asthma, uncomplicated; I25.10 Atherosclerotic heart disease of native coronary artery without angina pectoris; I10 Essential (primary) hypertension; E78.00 Pure hypercholesterolemia, unspecified; E03.9 Hypothyroidism, unspecified; M17.0 Bilateral primary osteoarthritis of knee; M19.021 Primary osteoarthritis, right elbow; M16.11 Unilateral primary osteoarthritis, right hip; Z95.5 Presence of coronary angioplasty implant and graft; Z79.01 Long term (current) use of anticoagulants; Z79.82 Long term (current) use of aspirin
CPT/HCPCS: 87426; 87804; 99213; G0463

== ENCOUNTER 2024-04-10 10:34 | Outpatient (CLI) | payer MEDICARE, OTHER, SELFPAY ==
--- NOTE | ~2024-04-10 | US_ITS ---
Renal-Bladder ultrasound Clinical History: Resistant hypertension Technique: Real-time sonographic imaging of the kidneys and urinary bladder was performed. Findings: The right kidney measures 11.5 cm in length and the left kidney measures 12.7 cm. There is no hydronephrosis or renal calculus identified. Renal cortical echogenicity is within normal limits. Right renal cyst measures 2.3 cm. Left renal cyst measures 2.0 cm. The urinary bladder is moderately distended at the time of this exam. No intraluminal echoes are iden tified. No abnormal wall thickening is seen. Impression: No significant abnormality. Reviewed, dictated and finalized at location . Impression: No significant abnormality.
--- NOTE | ~2024-04-10 | XR_ITS ---
AP and oblique views of the right ribs, and PA chest radiograph Clinical History: Pain Findings: No rib fracture is seen. Osseous alignment is anatomic. Lungs are clear, without focal cons olidation or pleural effusion. Cardiomediastinal contour is within normal limits, status post median sternotomy. Soft tissues are unremarkable. Impression: No rib fracture is seen. Clear lungs. Reviewed, dictated and finalized at location . Impression: No rib fracture is seen. Clear lungs.
== END 2024-04-10 10:35 | disposition home or self-care (01) ==
LOC: MICIMG 10:36
PROVIDERS: PCP Internal Medicine; Visit Provider Internal Medicine
DX: R07.81 Pleurodynia (principal); I1A.0 Resistant hypertension
CPT/HCPCS: 71101; 76775

== ENCOUNTER 2024-04-10 11:10 | Outpatient (CLI) | payer MEDICARE, OTHER, SELFPAY ==
[2024-04-17 22:28] LABS: PRA 0.35 ng/mL/h (0.25-5.82)
== END 2024-04-10 11:11 | disposition home or self-care (01) ==
LOC: ANHLAB 11:13
PROVIDERS: PCP Internal Medicine; Visit Provider Internal Medicine
DX: I1A.0 Resistant hypertension (principal)
CPT/HCPCS: 36415; 82088; 84244

== ENCOUNTER 2024-09-02 18:08 | Emergency (ER) | payer MEDICARE, OTHER, SELFPAY ==
[2024-09-02 18:15] VITALS: BP 162/89; PULSE 61; RESP 18; TEMP 36.2; O2SAT 98
--- NOTE | 2024-09-02 18:22 | ED.URI ---
HPI - URI/Sore Throat General Chief Complaint: Upper Respiratory Infection Stated Complaint: Upper Respiratory Symptoms Time Seen by Provider: 09/02/24 18:18 Source: patient Mode of arrival: ambulatory Limitations: no limitations History of Present Illness HPI Narrative: Yazan is a 64-year-old male patient presenting to the clinic today with complaints of cough, chest congestion, nasal congestion, headache, body aches, and scratchy throat x2 days. Denies any known fever. Denies any chest pain or shortness of breath. MD elicited complaint: sore throat and nasal congestion Related Data Home Medications ?Medication ?Instructions ?Recorded ?Confirmed ?Last Taken ?Type atorvastatin 40 mg tablet (Lipitor) 40 mg PO HS 09/04/19 05/21/24 10/26/21 History furosemide 40 mg tablet 40 mg PO QAM 09/04/19 05/21/24 10/27/21 History nitroglycerin 0.4 mg sublingual 0.4 mg sublingual Q5M PRN Chest 09/04/19 05/21/24 Unknown History tablet Pain potassium chloride 20 mEq 20 meq PO DAILY 09/04/19 05/21/24 10/27/21 History tablet,extended release finasteride 5 mg tablet 5 mg PO DAILY 04/07/21 05/21/24 10/27/21 History metoprolol succinate 25 mg 25 mg PO DAILY 05/10/21 05/21/24 10/27/21 History tablet,extended release 24 hr rivaroxaban 20 mg tablet (Xarelto) 20 mg PO HS 05/10/21 05/21/24 10/26/21 History aspirin 81 mg tablet,delayed 81 mg PO DAILY 08/03/21 05/21/24 10/27/21 History release amlodipine 5 mg tablet mg 09/02/24 Unknown History potassium chloride 20 mEq meq PO 09/02/24 Unknown History tablet,extended release(part/cryst) valacyclovir 500 mg tablet mg 09/02/24 Unknown History Allergies Allergy/AdvReac Type Severity Reaction Status Date / Time demeclocycline Allergy Intermediate hives Verified 09/02/24 18:10 Iodinated Contrast Media Allergy Mild Redness of Verified 09/02/24 18:10 Skin tramadol AdvReac Severe Anxiety Verified 09/02/24 18:10 Review of Systems Review of Systems: Pertinent positives per HPI. Patient denies any fever, chills, rash, visual changes, dizziness, shortness of breath, chest pain, palpitations, nausea, vomiting, diarrhea, constipation, abdominal pain, or any urinary issues. 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 Calvin, [facility] Status post ablation of atrial fibrillation History of intravascular stent placement Stent in the right posterolateral April 2017 History of cardiac radiofrequency ablation Family History Family History Sibling Family history of malignant neoplasm of breast in first degree relative Mother Family history of malignant neoplasm of breast in first degree relative Patient's mother is Father Patient's father is Family history of heart disease in male family member before age 55 Social History Social History Social History: . of [facility]. One daughter who lives in [place]. Smoking status: Never smoker Second hand tobacco smoke exposure: Yes Alcohol intake: current Drinks per week: 10 Substance use: never Substance use type: does not use Lack of Transportation: No Lack of Food: Never True Current Housing: I Have Housing Concerned About Future Housing: No Difficulty Paying Gas/Electric Bills: No Difficulty Paying for Meds: No Currently Unemployed: No Education: Bachelor's Degree Difficulty w/ Childcare or Family Care: No Living arrangements: with family Gender identity (if verbalized by the patient): Male Spiritual care concerns: No Comments At the time of my signature, I reviewed and agree with the nursing past medical, surgical, social, and family history. There is no relevant family history pertinent to the patient complaint. Exam Narrative: General: Well-developed, well nourished, in no apparent distress Head: Normocephalic, atraumatic Eyes: Pupils equally round and reactive to light bilaterally, EOM intact, sclera and conjunctive clear, no discharge, lids normal Ears: TMs intact and clear, ear canals clear, no drainage, grossly hearing normal. Nose: Nares patent, clear nasal discharge, moderate inflammation, no sinus tenderness. Mouth: Oral pharynx without lesions or masses, good dentition, MMM. Neck: Supple, trachea midline, no enlargement of anterior or posterior cervical nodes, no thyroid masses or goiter palpable. Cardio: Regular rate and rhythm, s1 and s2 normal, no murmur appreciated. Resp: Clear to auscultation bilaterally, no rhonchi, rales, wheezing or rubs Course Course Emergency Course: Portions of this record may have been created with voice recognition software. Level of Care: Express Care Visit Vital Signs Vital signs: Vital Signs Temperature 36.2 C L 09/02/24 18:15 Pulse Rate 61 09/02/24 18:15 Respiratory Rate 18 09/02/24 18:15 Blood Pressure 162/89 H 09/02/24 18:15 Pulse Oximetry 98 09/02/24 18:15 Oxygen Delivery Room Air 09/02/24 18:15 Temperature 36.2 C L 09/02/24 18:15 Pulse Rate 61 09/02/24 18:15 Respiratory Rate 18 09/02/24 18:15 Blood Pressure 162/89 H 09/02/24 18:15 Pulse Oximetry 98 09/02/24 18:15 Oxygen Delivery Room Air 09/02/24 18:15 Vital signs reviewed MDM - URI/Sore Throat MDM Narrative Medical decision making narrative: At the time of visit patient is resting comfortably on the exam table. Patient appears to be nontoxic. Labs: COVID and influenza testing was negative in the clinic today. Plan: I suspect patient has URI with cough congestion. Supportive measures were discussed with the patient and they voiced understanding discharge instructions and agrees to treatment plan. Return precautions reviewed Differential Diagnosis Differential diagnosis: Likely upper respiratory infection, otitis media, sinusitis, viral infection, bronchitis, influenza, pharyngitis and other (COVID) Discharge Plan Discharge Clinical Impression: Upper respiratory infection with cough and congestion Patient Disposition: Home, Self-Care Condition: Stable Instructions: Antibiotic Form, Cold Symptoms (ED) Additional Instructions: COVID and influenza testing were both negative in the clinic today Lung sounds are clear and there is no sign of bacterial infection May take Coricidin HBP for cold/flu symptoms May take Mucinex for cough. Increase fluids and stay well hydrated Tylenol/motrin for pain/fever Flonase and OTC antihistamines as directed Vicks vapor rub to open sinuses Sinus rinses for congestion Cepacol spray, cough drops, throat lozenges, warm tea with honey/lemon, gargle salt water to soothe throat BRAT diet for diarrhea Clear liquids x 24 hours then advance as tolerated for nausea/vomiting Go to the ED if you develop a worsening in your condition- high fever not controlled by Tylenol or Motrin, dehydration, weakness, lethargy, shortness of breath, or chest pain. Follow up with your PCP in 3-5 days if symptoms persist. Patient Language: Thai Prescriptions: No Action amlodipine 5 mg tablet valacyclovir 500 mg tablet potassium chloride 20 mEq tablet,ER particles/crystals PO finasteride 5 mg tablet 5 mg PO DAILY pantoprazole 40 mg tablet,delayed release (DR/EC) 40 mg PO QAM Qty: 90 3RF trazodone 50 mg tablet 50 mg PO HS Qty: 90 2RF furosemide 40 mg tablet 40 mg PO QAM atorvastatin [Lipitor] 40 mg tablet 40 mg PO HS nitroglycerin 0.4 mg tablet, sublingual 0.4 mg SUBLINGUAL Q5M PRN (Reason: Chest Pain) Rx Instructions: do not exceed 3 doses per episode potassium chloride 20 mEq tablet extended release 20 meq PO DAILY aspirin 81 mg tablet,delayed release (DR/EC) 81 mg PO DAILY Xarelto 20 mg tablet 20 mg PO HS metoprolol succinate 25 mg tablet extended release 24 hr 25 mg PO DAILY escitalopram oxalate 20 mg tablet 20 mg PO DAILY Qty: 90 3RF levothyroxine 50 mcg tablet 50 mcg PO DAILY Qty: 90 2RF fluticasone propionate 50 mcg/actuation spray,suspension 2 spray NASAL DAILY PRN (Reason: nasal congestion) Qty: 15.8 5RF Rx Instructions: administer into each nostril fluticasone propion-salmeterol [Wixela Inhub] 250-50 mcg/dose blister with device 1 inh inhalation BID Qty: 60 6RF alprazolam 0.5 mg tablet 0.5 mg PO BID PRN (Reason: anxiety) Qty: 60 0RF Follow-up/Referrals: Blane Kaufman DO [Primary Care Provider] - Time of Disposition: 18:34 Quality NIHSS Nursing Documentation ED NIHSS nursing documentation: reviewed/agree
[2024-09-02 18:37] LABS: EDCOVIDSCREEN Negative (Negative); EDINFLUASCREEN Negative (Negative); EDINFLUBSCREEN Negative (Negative)
== END 2024-09-02 18:37 | disposition home or self-care (01) ==
PROVIDERS: Emergency Provider Nurse Practitioner Family; PCP Internal Medicine
DX: J06.9 Acute upper respiratory infection, unspecified (principal); R05.9 Cough, unspecified; Z20.822 Contact with and (suspected) exposure to COVID-19; E78.00 Pure hypercholesterolemia, unspecified; I48.91 Unspecified atrial fibrillation; E03.9 Hypothyroidism, unspecified; I25.10 Atherosclerotic heart disease of native coronary artery without angina pectoris; J45.909 Unspecified asthma, uncomplicated; I10 Essential (primary) hypertension; M17.0 Bilateral primary osteoarthritis of knee; M19.021 Primary osteoarthritis, right elbow
CPT/HCPCS: 87426; 87804; 99212; G0463

== ENCOUNTER 2025-04-07 14:15 | Outpatient (CLI) | payer MEDICARE, SELFPAY ==
--- OUTSIDE RECORDS SUMMARY | 2025-04-07 15:22 | XMS_ITS | Encounter Summary ---
Author Organization [facility] Address [address] [place] [address] Care Team Providers Care Heater Installer Name Role Phone None, Provider Primary Care Provider Rogers Jain MD Primary Care Provider [phone] Encounter Details Date Type Department Care Team (Late st Contact Info) Description 02/25/2020 Prep for Procedure [facility] [place] [address] [id number] Anjali Nunez NP [address] [facility] [address] [place] [phone] [phone] (Work) Social History Tobacco Use Types Packs/Day Years Used Date Smoking Tobacco: Never Smokeless Tobacco: Never Alcohol Use Standard Drinks/Week Comments Yes 0 (1 standard drink = 0.6 oz pur e alcohol) socially Education Answer Date Recorded What is the highest level of school you have completed or the highest degree you have received? Bachelor's degree (e.g., BA, AB, BS) 02/25/2020 Sex and Gender Information Value Date Recorded Sex Assigned at Not on file Legal Sex Male 10:42 AM CDT Gender Identity Not on file Sexual Orientation Not on file COVID-19 Exposure Response Date Recorded In the last month, have you been in contact with someone who was confirmed or suspected to have Coronavirus / COVID-19? No / Unsure 02/25/2020 10:39 AM CDT documented as of this encounter Plan of Treatment Not on file documented as of this encounter Visit Diagnoses Not on filedocumented in this encounter Care Teams Heater Installer Relationship Specialty Start Date End Date None, Provider, PCP - General 12/25/19 01/07/21 Rogers Rey MD [address] [place] [address] PCP - General INTERNAL MEDICINE 01/08/21 documented as of this encounter
--- OUTSIDE RECORDS SUMMARY | 2025-04-07 15:22 | XMS_ITS | Encounter Summary ---
Author Organization [facility] Address [address] [facility] [place] [address] Care Team Providers Care Insulation Power Unit Tender Name Role Phone Rogers Rey Malena COELLO Primary Care Provider [phone] Encounter Details Date Type Department Care Team (Late st Contact Info) Description 05/03/2023 Lab Requisition [facility] - DermPath Lab [address] [facility] [place] [id number] Allie Metcalf MD [address] [facility] [address] [place] [address] Social History Tobacco Use Types Packs/Day Years Used Date Smoking Tobacco: Never Smokeless Tobacco: Never Alcohol Use Standard Drinks/Week Comments Yes 21 (1 standard drink = 0.6 oz pu re alcohol) Sex and Gender Information Value Date Recorded Sex Assigned at Not on file 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 Gender Identity Not on file Sexual Orientation Not on file documented as of this encounter Plan of Treatment Not on file documented as of this encounter Procedures Procedure Name Priority Date/Time Associated Diagnosis Comments DERMATOPATHOLOGY Routine 05/03/2023 1:55 PM CDT documented in this encounter Results * DERMATOPATHOLOGY (05/03/2023 1:55 PM CDT) Case Report Dermatopathology Report Case: [id number] Authorizing Provider: Allie Metcalf MD Collected: 05/03/2023 01:55 PM Ordering Location: [facility] DermPath Lab Received: 05/04/2023 12:24 PM Pathologist: Mesfin Bhandari MD Specimen: Skin, left posterior shoulder 3:58 PM CDT DERMATOPATHOLOGY LABORATORY Final Diagnosis Specimen A. SKIN, left posterior shoulder: EPIDERMOID CYST (L72.0) 3:58 PM CDT DERMATOPATHOLOGY LABORATORY at 1558 CDT Clinical History Cyst 3:58 PM CDT DERMATOPATHOLOGY LABORATORY Gross Description Specimen A: Received is one formalin filled container labeled with the patient's name and designated left posterior shoulder. The specimen consists of piece of skin measuring [id number] mm. The specimen is serially sectioned and a b2b outside sales representative section is submitted in cassette 1. Jar 1. 3:58 PM CDT DERMATOPATHOLOGY LABORATORY Microscopic Description Specimen A. SKIN, left posterior shoulder: Within the dermis, there is a space lined by epithelium that resembles normal epidermis and the infundibular portion of the hair follicle. 3:58 PM CDT DERMATOPATHOLOGY LABORATORY Disclaimer An external and internal positive and negative controls are appropriate for the histochemical, immunohistochemical and immunofluorescence stain(s) in this case (if any), except where stated explicitly. The performance characteristics of the stain(s) cited in this report were developed and its performance characteristic determined by the Dermatopathology Laboratory at [facility], directed by Dr. Robin Bhandari. These tests need not be, and therefore are not, approved by the [place] Food and Drug Administration. The tests are used for clinical purposes. Billing Codes Specimen Charges Stain Charges 16764 1 3:58 PM CDT DERMATOPATHOLOGY LABORATORY Embedded Images 3:58 PM CDT DERMATOPATHOLOGY LABORATORY Pathology/Cytolo gy TISSUE SPECIMEN FROM SKIN / Unknown 05/03/2023 1:55 PM CDT 05/04/2023 12:24 PM CDT us Allie Metcalf MD LAB - PATHOLOGY/CYTOLOGY ORD ERABLES Final Result DERMATOPATHOLOGY LABORATORY [facility] - Department of Dermatology [address] Floor [place], [place] [id number] [place] [address] documented in this encounter Visit Diagnoses Not on filedocumented in this encounter Care Teams Insulation Power Unit Tender Relationship Specialty Start Date End Date Rogers Rey DO [address] [facility] [address] [place] [address] PCP - General 04/08/14 documented as of this encounter
--- OUTSIDE RECORDS SUMMARY | 2025-04-07 15:22 | XMS_ITS | Encounter Summary ---
Author Organization [facility] Address [address] [address] Care Team Providers Care Billing Assistant Name Role Phone Rogers Rey MD Primary Care Provider [phone] Emory Mckeon MD Unavailable [phone] Nirmal Santa MD Unavailable [phone] aBsilia Yeager NP Unavailable [phone] Kavitha Noguera MD Unavailable [phone] Blane Kaufman DO Primary Care Provider [phone] Encounter Details Date Type Department Care Team (Late st Contact Info) Description 10/18/2016 Orders Only [facility] Provider, MD [address] [place] [address] Social History Tobacco Use Types Packs/Day Years Used Date Smoking Tobacco: Never Assessed Alcohol Use Standard Drinks/Week Comments Yes 0 (1 standard drink = 0.6 oz pur e alcohol) Sex and Gender Information Value Date Recorded Sex Assigned at Not on file 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 us Historical Provider [facility] CARDIAC SERVICES PROCE DURES Final Result * CARDIOLOGY REPORT (10/18/2016) Anatomical Region Laterality Modality Other Narrative 10/18/2016 Ordered by an unspecified provider. us Historical Provider CV CARDIAC SERVICES PROCE DURES Final Result documented in this encounter Visit Diagnoses Not on filedocumented in this encounter Care Teams Billing Assistant Relationship Specialty Start Date End Date Rogers Rey MD [address] [address] PCP - General 09/30/16 05/13/24 Blane Kaufman DO [address] [facility] [address] [address] PCP - General Internal Medicine 05/14/24 Emory Mckeon MD [address] [address] Consulting Physician Cardiology 11/19/18 Nirmal Santa MD [address] [facility] [address] [address] Consulting Physician Cardiology 11/19/18 Basilia Yeager NP [address] [address] Nurse Practitioner Cardiology 11/19/18 Kavitha Noguera MD [address] [address] Referring Physician Pain Management 03/13/19 documented as of this encounter
--- OUTSIDE RECORDS SUMMARY | 2025-04-07 15:22 | XMS_ITS | Clinical Summary ---
Author Organization [facility] Address [address] [place] [address] Care Team Providers Care Fitness And Wellness Instructor Name Role Phone Rogers Rey Malena COELLO Primary Care Provider [phone] Source Comments [facility],non-owned Affiliates and Associated Physician Practices is amultiple site organization consisting of ambulatory clinics and hospital sitesin [place], [place], [place] and [place]. This disclosure is being madepursuant to the Care Everywhere program and may not contain all information available regarding this patient. Last updated 18.[facility] Allergies Active Allergy Reactions Criticality Noted Date Comments Amlodipine Base Other Medium 11/30/2021 Ankle edema Contrast-Iodinated Agents Fo r Ct/Other Rash,Other High 02/16/2023 Demeclocycline Rash,Other Medium 02/25/2020 Iodine Rash Medium 02/25/2020 Medications * Be aware that medications may not be up to date on this document. Alwaysverify current medications with the patient. valACYclovir (Valtrex) 500 MG tablet Take 1 (one) tablet by mouth once daily 11/29/2022 Active traZODone (Desyrel) 50 MG tablet Take 1 (one) tablet by mouth at bedtime Active rivaroxaban (Xarelto) 20 MG tablet Take 1 (one) tablet by mouth once daily 03/02/2022 Active potassium chloride ER (K-TAB) 20 MEQ tablet Take 1 (one) tablet by mouth once daily 01/24/2023 Active nitroGLYCERIN (Nitrostat) 0.4 MG tablet Dissolve 1 (one) tablet under the tongue every 5 minutes as needed Active pantoprazole EC (Protonix) 40 MG tablet Take 1 (one) tablet by mouth 2 times daily 12/27/2022 Active metoprolol succinate XL 24hr (Toprol XL) 25 MG tablet Take 1 (one) tablet by mouth once daily 12/21/2022 Active lisinopril (Prinivil; Zestril) 40 MG tablet Take 1 (one) tablet by mouth once daily 02/14/2023 Active levothyroxine (Synthroid) 50 MCG tablet Take 1 (one) tablet by mouth once daily Active fluticasone propionate (Flonase) 50 MCG/ACT nasal spray Jenner 2 (two) sprays into the nose 2 times daily Active furosemide (Lasix) 40 MG tablet Take 1 (one) tablet by mouth once daily 06/29/2022 Active finasteride (Proscar) 5 MG tablet Take 1 (one) tablet by mouth once daily 01/24/2023 Active escitalopram (Lexapro) 20 MG tablet Take 1 (one) tablet by mouth once daily Active doxycycline hyclate (Acticlate) 100 MG tablet Take 1 (one) tablet by mouth every 2 days Active budesonide-form oterol (Symbicort) 160-4.5 MCG/ACT inhaler Inhale 2 (two) puffs by mouth 2 times daily Active atorvastatin (Lipitor) 40 MG tablet Take 1 (one) tablet by mouth once daily 09/01/2022 Active ASPIRIN 81 PO Active Encounters Date Type Department Care Team Description 01/30/2025 Lab Requisition 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 Gender Identity Not on file Sexual Orientation Not on file Plan of Treatment Health Maintenance Due Date Last Done Comments COLOGUARD (AGES 45-75) - COL ON CA SCREENING 1959 COLON MONITORING 1959 COLONOSCOPY - COLON CA SCREENING 1959 CT COLONOGRAPHY - COLON CA SCREENING 1959 Colorectal Cancer Screening 1959 FIT - COLON CA SCREENING 1959 FLEX SIG - COLON CA SCREENING 1959 HEPATITIS C SCREENING 01/16/1977 DTAP/TDAP/TD VACCINES (1 - Tdap) 1978 PNEUMOCOCCAL VACCINE 50+ (1 of 1 - PCV) 2009 ZOSTER VACCINE (1 of 2) 2009 DEPRESSION SCREENING 07/03/2024 MEDICARE AWV CALENDAR YEAR 2024 COVID-19 VACCINE (3 - 2024-2 6 season) 2025 08/04/2020, 07/07/2020 INFLUENZA VACCINE (#1) 2025 03/30/2016 Respiratory Syncytial Virus (RSV) Vaccine Pt: or over 60 yrs (1 - 1-dose 75+ series) 2034 HEPATITIS B VACCINE Aged Out No longe r eligible based on patient's age to complete this topic HIB VACCINE Aged Out No longer eligi ble based on patient's age to complete this topic HPV VACCINE Aged Out No longer eligi ble based on patient's age to complete this topic MENINGOCOCCAL (Group B) VACCINE SHARED DECISION-MAKING Aged Out No longer eligible based on patient's age to complete this topic MENINGOCOCCAL GROUPS A/C/Y/W VACCINE Aged Out No longer eligible b ased on patient's age to complete this topic Procedures Procedure Name Priority Date/Time Associated Diagnosis Comments DERMATOPATHOLOGY Routine 01/30/2025 10:4 4 AM CDT from Last 3 Months Results * DERMATOPATHOLOGY (01/30/2025 10:44 AM CDT) Case Report Dermatopathology Report Case: [id number] Authorizing Provider: Allie Metcalf MD Collected: 01/30/2025 10:44 AM Ordering Location: [facility] - Received: 01/31/2025 08:54 AM DermPath Lab Pathologist: Macy Simons MD Specimen: Skin, right earlobe 4:34 PM CDT DERMATOPATHOLOGY LABORATORY Final Diagnosis Specimen A. SKIN, right earlobe: ABSCESS AND INTRAEPIDERMAL PUSTULES WITH BACTERIA AND PITYROSPORUM (L02.91) ROSACEA CHANGES (L71.9) (see microscopic description) 4:34 PM CDT DERMATOPATHOLOGY LABORATORY at 1633 CDT Clinical History [place] vs HSV vs NMSC 4:34 PM CDT DERMATOPATHOLOGY LABORATORY Gross Description Specimen A: Received is one formalin filled container labeled with the patient's name and designated right earlobe. The specimen consists of a shave biopsy measuring 6x5x2 mm. Jar 0. 4:34 PM CDT DERMATOPATHOLOGY LABORATORY Microscopic Description Specimen A. SKIN, right earlobe: Sections show intraepidermal pustules and a collection of neutrophils in the dermis. Dilated thin-walled superficial dermal blood vessels are observed. Solar elastosis is present. Demodex mites are seen within follicles. Gram stain reveals bacteria within a follicular orifice and GMS stain reveals focal fungal yeast forms consistent with Pityrosporum in the stratum corneum. Herpes simplex virus and varicella virus stains are negative. 4:34 PM CDT DERMATOPATHOLOGY LABORATORY Disclaimer An external and internal positive and negative controls are appropriate for the histochemical, immunohistochemical and immunofluorescence stain(s) in this case (if any), except where stated explicitly. The performance characteristics of the stain(s) cited in this report were developed and its performance characteristic determined by the Dermatopathology Laboratory at [facility], directed by Dr. Robin Bhandari. These tests need not be, and therefore are not, approved by the [place] Food and Drug Administration. The tests are used for clinical purposes. Billing Codes Specimen Charges Stain Charges 55980 1 46252 76825 74455 66615 1 1 1 1 4:34 PM CDT DERMATOPATHOLOGY LABORATORY Embedded Images 4:34 PM CDT DERMATOPATHOLOGY LABORATORY Pathology/Cytolo gy TISSUE SPECIMEN FROM SKIN / Unknown 01/30/2025 10:44 AM CDT 01/31/2025 8:54 AM CDT Allie Metcalf MD LAB - PATHOLOGY/CYTOLOGY ORD ERABLES Final Result DERMATOPATHOLOGY LABORATORY [facility] - Department of Dermatology [facility] Medicine [address] [facility]rd [place] [address], [facility] [phone] from Last 3 Months Insurance [employer] MEDICARE ADV Care Teams Fitness And Wellness Instructor Relationship Specialty Start Date End Date Rogers Rey DO [address] [place] [address] PCP - General 04/08/14
--- OUTSIDE RECORDS SUMMARY | 2025-04-07 15:22 | XMS_ITS | Encounter Summary ---
Author Organization [facility] Address [address] [facility] [place] [facility] [place] [address] Care Team Providers Care Rubber Compounder Name Role Phone Rogers Rey Primary Care Provider [phone] Encounter Details Date Type Department Care Team (Late st Contact Info) Description 04/06/2020 Lab Requisition [facility] DermPath Lab [address] [facility] [place] [address] Allie Metcalf MD [address] [facility] [address] [place] [address] Social History Tobacco Use Types Packs/Day Years Used Date Smoking Tobacco: Never Assessed Sex and Gender Information Value Date Recorded Sex Assigned at Not on file 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 Gender Identity Not on file Sexual Orientation Not on file documented as of this encounter Plan of Treatment Not on file documented as of this encounter Procedures Procedure Name Priority Date/Time Associated Diagnosis Comments DERMATOPATHOLOGY Routine 04/06/2020 12:0 0 AM CDT documented in this encounter Results * DERMATOPATHOLOGY (04/06/2020 12:00 AM CDT) Case Report Dermatopathology Report Case: [id number] Authorizing Provider: Allie Metcalf MD Collected: 04/06/2020 12:00 AM Ordering Location: [facility] DermPath Lab Received: 04/06/2020 10:58 AM Pathologist: Mesfin Bhandari MD Specimen: Skin, right wrist 0 3:13 PM CDT DERMATOPATHOLOGY LABORATORY Final Diagnosis Specimen A. SKIN, right wrist: DERMAL SCAR RESIDUAL SQUAMOUS CELL CARCINOMA NOT IDENTIFIED (L90.5) 0 3:13 PM CDT DERMATOPATHOLOGY LABORATORY at 1513 CDT Clinical History R/O SCCIS, bx proven. [id number]. 0 3:13 PM CDT DERMATOPATHOLOGY LABORATORY Gross Description Specimen A: Received is one formalin filled container labeled with the patient's name and designated right wrist. The specimen consists of an ellipse measuring 02x47d0ky and is oriented with the notch at the 12 o'clock position labeled on the requisition as 7x4mm previous biopsy site. The epidermal surface consists of a centrally located 7x4mm previous biopsy site. The 12 to 6 o'clock margin is inked green. The 6 o'clock to 12 o'clock margin is inked black. The 12 o'clock tip is submitted in cassette 1. The 6 o'clock tip is submitted in cassette 2. The remainder of the ellipse is serially sectioned and submitted in cassettes 3-4. Jar 0. 0 3:13 PM CDT DERMATOPATHOLOGY LABORATORY Microscopic Description Specimen A. SKIN, right wrist: There are fibroblasts and collagen bundles oriented parallel to the skin surface. There are elongated blood vessels, some of which are oriented perpendicular to the skin surface. No residual squamous cell carcinoma is identified. 0 3:13 PM T DERMATOPATHOLOGY LABORATORY Disclaimer An external and internal positive and negative controls are appropriate for the histochemical, immunohistochemical and immunofluorescence stain(s) in this case (if any), except where stated explicitly. The performance characteristics of the stain(s) cited in this report were developed and its performance characteristic determined by the Dermatopathology Laboratory at [facility], directed by Dr. Robin Bhandari. These tests need not be, and therefore are not, approved by the [place] Food and Drug Administration. The tests are used for clinical purposes. Billing Codes Specimen Charges Stain Charges 46452 1 0 3:13 PM CDT DERMATOPATHOLOGY LABORATORY Embedded Images 0 3:13 PM CDT DERMATOPATHOLOGY LABORATORY Pathology/Cytolog y TISSUE SPECIMEN FROM SKIN / Unknown 04/06/2020 04/06/2020 10:58 AM CDT us Allie Metcalf MD LAB - PATHOLOGY/CYTOLOGY ORD ERABLES Final Result DERMATOPATHOLOGY LABORATORY [facility] - Department of Dermatology [address], [address] [phone] documented in this encounter Visit Diagnoses Not on filedocumented in this encounter Care Teams Rubber Compounder Relationship Specialty Start Date End Date Rogers Rey DO [address] [facility] [address] [place] [address] PCP - General 04/08/14 documented as of this encounter
--- OUTSIDE RECORDS SUMMARY | 2025-04-07 15:22 | XMS_ITS | Encounter Summary ---
Author Organization [facility] Address [address] [address] Care Team Providers Care Placement Officer Name Role Phone Rogers Rey MD Primary Care Provider [phone] Emory Mckeon MD Unavailable [phone] Nirmal Santa MD Unavailable [phone] Basilia Yeager NP Unavailable [phone] Kavitha Noguera MD Unavailable [phone] Blane Kaufman DO Primary Care Provider Encounter Details Date Type Department Care Team (Late st Contact Info) Description 10/14/2016 Orders Only [facility] Provider, MD Joshua [address] [place] [address] Social History Tobacco Use Types Packs/Day Years Used Date Smoking Tobacco: Never Assessed Alcohol Use Standard Drinks/Week Comments Yes 0 (1 standard drink = 0.6 oz pur e alcohol) Sex and Gender Information Value Date Recorded Sex Assigned at Not on file 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 us Historical Provider CV CARDIAC SERVICES PROCE JONATHAN Final Result documented in this encounter Visit Diagnoses Not on filedocumented in this encounter Care Teams Placement Officer Relationship Specialty Start Date End Date Rogers Rey MD [address] [facility] [address] [place] [address] PCP - General 09/30/16 05/13/24 Blane Kaufman DO [address] [place] [address] [address] PCP - General Internal Medicine 05/14/24 Emory Mckeon MD [address] [place] [address] [address] Consulting Physician Cardiology 11/19/18 Nirmal Santa MD [address] [place] [address] [address] Consulting Physician Cardiology 11/19/18 Basilia Yeager NP [address] [place] [address] [address] Nurse Practitioner Cardiology 11/19/18 Kavitha Noguera MD [address] [place] [address] [address] Referring Physician Pain Management 03/13/19 documented as of this encounter
--- OUTSIDE RECORDS SUMMARY | 2025-04-07 15:22 | XMS_ITS | Encounter Summary ---
Author Organization [facility] Address [address] [place] [address] Care Team Providers Care Shirt Cleaner Name Role Phone Rogers Rey Primary Care Provider [phone] Encounter Details Date Type Department Care Team (Late st Contact Info) Description 02/08/2023 Lab Requisition [facility] - DermPath Lab [address] [facility], [place] [phone] Allie Metcalf MD [address] [facility] [address] [place] [address] Social History Tobacco Use Types Packs/Day Years Used Date Smoking Tobacco: Never Assessed Sex and Gender Information Value Date Recorded Sex Assigned at Not on file 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 Gender Identity Not on file Sexual Orientation Not on file documented as of this encounter Plan of Treatment Not on file documented as of this encounter Procedures Procedure Name Priority Date/Time Associated Diagnosis Comments DERMATOPATHOLOGY Routine 02/08/2023 2:28 PM CDT documented in this encounter Results * DERMATOPATHOLOGY (02/08/2023 2:28 PM CDT) Case Report Dermatopathology Report Case: [id number] Authorizing Provider: Allie Metcalf MD Collected: 02/08/2023 02:28 PM Ordering Location: [facility] DermPath Lab Received: 02/09/2023 03:47 PM Pathologist: Macy Simons MD Specimen: Skin, left back 1:03 PM CDT DERMATOPATHOLOGY LABORATORY Final Diagnosis Specimen A. SKIN, left back: SEBORRHEIC KERATOSIS, IRRITATED AND INFLAMED (L82.0) 1:03 PM CDT DERMATOPATHOLOGY LABORATORY at 1303 CDT Clinical History R/O: MELANOMA, NEVUS, SK, IRREGULAR BORDER, IRREGULAR COLOR; BROWN PAPULE 1:03 PM CDT DERMATOPATHOLOGY LABORATORY Gross Description Specimen A: Received is one formalin filled container labeled with the patient's name and designated left back. The specimen consists of a shave biopsy measuring 7x7x2 mm. Jar 0. 1:03 PM CDT DERMATOPATHOLOGY LABORATORY Microscopic Description Specimen A. SKIN, left back: Sections show acanthosis, papillomatosis, hyperkeratosis, and squamous eddies. There is a lymphohistiocytic infiltrate within the papillary dermis. 1:03 PM CDT DERMATOPATHOLOGY LABORATORY Disclaimer An external and internal positive and negative controls are appropriate for the histochemical, immunohistochemical and immunofluorescence stain(s) in this case (if any), except where stated explicitly. The performance characteristics of the stain(s) cited in this report were developed and its performance characteristic determined by the Dermatopathology Laboratory at [facility], directed by Dr. Robin Bhadnari. These tests need not be, and therefore are not, approved by the [place] Food and Drug Administration. The tests are used for clinical purposes. Billing Codes Specimen Charges Stain Charges 44233 1 1:03 PM CDT DERMATOPATHOLOGY LABORATORY Embedded Images 1:03 PM CDT DERMATOPATHOLOGY LABORATORY Pathology/Cytolo gy TISSUE SPECIMEN FROM SKIN / Unknown 02/08/2023 2:28 PM CDT 02/09/2023 3:47 PM CDT us Allie Metcalf MD LAB - PATHOLOGY/CYTOLOGY ORD ERABLES Final Result DERMATOPATHOLOGY LABORATORY [facility] - Department of Dermatology [address] [phone] documented in this encounter Visit Diagnoses Not on filedocumented in this encounter Care Teams Shirt Cleaner Relationship Specialty Start Date End Date Rogers Rey DO [address] [facility] [address] [facility] [address] [place] [address] PCP - General 04/08/14 documented as of this encounter
--- OUTSIDE RECORDS SUMMARY | 2025-04-07 15:22 | XMS_ITS | Encounter Summary ---
Author Organization [facility] Address [facility] [place] [address] Care Team Providers Care Hydrator Name Role Phone None, Provider Primary Care Provider Rogers Jain MD Primary Care Provider [phone] Reason for Referral * Surgical (Routine) - Closed Specialty Diagnoses / Procedures Referred By Abraham keenan Referred To Contact Procedures Case request operating room: INJECTION EPIDURAL TRANSFORAMINAL L3-4, L4-5 Anjali Nunez NP [address] [facility] [address] [place] [address] Phone: tel: [phone] fax: Referral ID Status Reason Start Date Expiration Date Visits Re quested Visits Authorized [id number] Closed 02/25/2020 03/27/2021 1 1 Encounter Details Date Type Department Care Team (Late st Contact Info) Description 02/25/2020 Prep for Procedure [facility] [place] [address] [id number] Anjali Nunez NP [address] [facility] [address] [place] [phone] (Work) Social History Tobacco Use Types Packs/Day [...] as of this encounter Plan of Treatment Scheduled Orders Name Type Priority Associated Diagnoses Order Schedule Case request operating room: INJECTION EPIDURAL TRANSFORAMINAL L3-4, L4-5 Case Request Routine Once for 1 Occurrences starting 02/25/2020 until 02/25/2020 documented as of this encounter Visit Diagnoses Not on filedocumented in this encounter Care Teams Hydrator Relationship Specialty Start Date End Date None, Provider, PCP - General 12/25/19 01/07/21 Rogers Rey MD [address] [place] [address] PCP - General INTERNAL MEDICINE 01/08/21 documented as of this encounter
--- OUTSIDE RECORDS SUMMARY | 2025-04-07 15:22 | XMS_ITS | Encounter Summary ---
Author Organization [facility] Address [address] [place] [address] Care Team Providers Care Lead C Developer Name Role Phone Rogers Rey Malena COELLO Primary Care Provider [phone] Encounter Details Date Type Department Care Team (Late st Contact Info) Description 01/30/2025 Lab Requisition [facility] - DermPath Lab [address] [facility] [place] [address] Allie Metcalf MD [address] [facility] 3 [place] [address] Social History Tobacco Use Types Packs/Day Years Used Date Smoking Tobacco: Never Smokeless Tobacco: Never Alcohol Use Standard Drinks/Week Comments Yes 21 (1 standard drink = 0.6 oz pu re alcohol) Sex and Gender Information Value Date Recorded Sex Assigned at Not on file 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 Gender Identity Not on file Sexual Orientation Not on file documented as of this encounter Plan of Treatment Not on file documented as of this encounter Procedures Procedure Name Priority Date/Time Associated Diagnosis Comments DERMATOPATHOLOGY Routine 01/30/2025 10:4 4 AM CDT documented in this encounter Results * DERMATOPATHOLOGY (01/30/2025 10:44 AM CDT) Case Report Dermatopathology Report Case: [id number] Authorizing Provider: Allie Metcalf MD Collected: 01/30/2025 10:44 AM Ordering Location: [facility] - Received: 01/31/2025 08:54 AM [...] characteristic determined by the Dermatopathology Laboratory at [facility], directed by Dr. Robin Bhandari. These tests need not be, and therefore are not, approved by the [place] Food and Drug Administration. The tests are used for clinical purposes. Billing Codes Specimen Charges Stain Charges 47164 1 31434 34658 09246 24804 1 1 1 1 4:34 PM CDT DERMATOPATHOLOGY LABORATORY Embedded Images 4:34 PM CDT DERMATOPATHOLOGY LABORATORY Pathology/Cytolo gy TISSUE SPECIMEN FROM SKIN / Unknown 01/30/2025 10:44 AM CDT 01/31/2025 8:54 AM CDT us Allie Metcalf MD LAB - PATHOLOGY/CYTOLOGY ORD ERABLES Final Result DERMATOPATHOLOGY LABORATORY [facility] - Department of Dermatology [facility] Medicine [address] [place] [address], [address] [phone] documented in this encounter Visit Diagnoses Not on filedocumented in this encounter Care Teams Lead C Developer Relationship Specialty Start Date End Date Rogers Rey DO [address] [facility] [address] [facility] 21 [place] [address] PCP - General 04/08/14 documented as of this encounter
--- OUTSIDE RECORDS SUMMARY | 2025-04-07 15:22 | XMS_ITS | Encounter Summary ---
Author Organization [facility] Address [address] [place] [address] Care Team Providers Care Clamp Truck Driver Name Role Phone Rogers Rey Malena COELLO Primary Care Provider [phone] Encounter Details Date Type Department Care Team (Late st Contact Info) Description 02/22/2024 Lab Requisition [facility] - DermPath Lab [address] [facility], [place] [phone] Allie Metcalf MD [address] [facility] [address] [place] [address] Social History Tobacco Use Types Packs/Day Years Used Date Smoking Tobacco: Never Smokeless Tobacco: Never Alcohol Use Standard Drinks/Week Comments Yes 21 (1 standard drink = 0.6 oz pu re alcohol) Sex and Gender Information Value Date Recorded Sex Assigned at Not on file 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 Gender Identity Not on file Sexual Orientation Not on file documented as of this encounter Plan of Treatment Not on file documented as of this encounter Procedures Procedure Name Priority Date/Time Associated Diagnosis Comments DERMATOPATHOLOGY Routine 02/22/2024 1:44 PM CDT documented in this encounter Results * DERMATOPATHOLOGY (02/22/2024 1:44 PM CDT) Case Report Dermatopathology Report Case: [id number] Authorizing Provider: Allie Metcalf MD Collected: 02/22/2024 01:44 PM Ordering Location: [facility] - Received: 02/23/2024 01:09 PM DermPath Lab Pathologist: Tatiana Yanes MD Specimen: Skin, right preauricular 1:54 PM CDT DERMATOPATHOLOGY LABORATORY Final Diagnosis Specimen A. SKIN, right preauricular: EPIDERMOID CYST WITH EVIDENCE OF RUPTURE; SUPERFICIAL PORTIONS OF (L72.0) (see microscopic description) 1:54 PM CDT DERMATOPATHOLOGY LABORATORY at 1354 CDT Clinical History Angioma R/O Atypia 1:54 PM CDT DERMATOPATHOLOGY LABORATORY Gross Description Specimen A: Received is one formalin filled container labeled with the patient's name and designated right preauricular. The specimen consists of a shave biopsy measuring 9x5x2,4x4x2 mm. Jar 0. 1:54 PM CDT DERMATOPATHOLOGY LABORATORY Microscopic Description Specimen A. SKIN, right preauricular: Within the dermis, there are superficial portions of a space lined by epithelium that resembles normal epidermis and the infundibular portion of the hair follicle. Surrounding this is an infiltrate with neutrophils, histiocytes, and multinucleated giant cells. Additional deeper sections were obtained and reviewed. 1:54 PM CDT DERMATOPATHOLOGY LABORATORY Disclaimer An external and internal positive and negative controls are appropriate for the histochemical, immunohistochemical and immunofluorescence stain(s) in this case (if any), except where stated explicitly. The performance characteristics of the stain(s) cited in this report were developed and its performance characteristic determined by the Dermatopathology Laboratory at [facility], directed by Dr. Robin Bhandari. These tests need not be, and therefore are not, approved by the [place] Food and Drug Administration. The tests are used for clinical purposes. Billing Codes Specimen Charges Stain Charges 68249 1 1:54 PM CDT DERMATOPATHOLOGY LABORATORY Embedded Images 1:54 PM CDT DERMATOPATHOLOGY LABORATORY Pathology/Cytolo gy TISSUE SPECIMEN FROM SKIN / Unknown 02/22/2024 1:44 PM CDT 02/23/2024 1:09 PM CDT Allie Metcalf MD LAB - PATHOLOGY/CYTOLOGY ORD ERABLES Final Result DERMATOPATHOLOGY LABORATORY [facility] - Department of Dermatology [facility] Special[facility] Medicine [address] [place] [address], [address] [phone] documented in this encounter Visit Diagnoses Not on filedocumented in this encounter Care Teams Clamp Truck Driver Relationship Specialty Start Date End Date Rogers Rey DO [address] [facility] [address] [facility] [address] [place], [place] [phone] PCP - General 04/08/14 documented as of this encounter
--- OUTSIDE RECORDS SUMMARY | 2025-04-07 15:22 | XMS_ITS | Encounter Summary ---
Author Organization [facility] Address [address] [place] [address] Care Team Providers Care Global Risk Management Director Name Role Phone Rogers Rey Primary Care Provider [phone] Encounter Details Date Type Department Care Team (Late st Contact Info) Description 03/16/2020 Lab Requisition 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 DermPath Lab Received: 03/16/2020 10:58 AM Pathologist: Mesfin Bhandari MD Specimen: Skin, right wrist 0 12:36 PM CDT DERMATOPATHOLOGY LABORATORY Final Diagnosis Specimen A. 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 0 12:36 PM CDT DERMATOPATHOLOGY LABORATORY Gross Description Specimen A: Received is one formalin filled container labeled with the patient's name and designated right wrist. The specimen consists of a shave measuring 88u0m0if. Jar 0. 0 12:36 PM CDT DERMATOPATHOLOGY LABORATORY Microscopic Description Specimen A. SKIN, right wrist: The epidermis shows parakeratosis, full thickness disorderly maturation of keratinocytes, mitoses at different levels, and dyskeratotic cells. 0 12:36 PM CDT DERMATOPATHOLOGY LABORATORY Disclaimer An external and internal positive and negative controls are appropriate for the histochemical, immunohistochemical and immunofluorescence stain(s) in this case (if any), except where stated explicitly. The performance characteristics of the stain(s) cited in this report were developed and its performance characteristic determined by the Dermatopathology Laboratory at [facility], directed by Dr. Robin Bhandari. These tests need not be, and therefore are not, approved by the [place] Food and Drug Administration. The tests are used for clinical purposes. Billing Codes Specimen Charges Stain Charges 05577 1 0 12:36 PM CDT DERMATOPATHOLOGY LABORATORY Embedded Images 0 12:36 PM CDT DERMATOPATHOLOGY LABORATORY Pathology/Cytolog y TISSUE SPECIMEN FROM SKIN / Unknown 03/12/2020 03/16/2020 10:58 AM CDT us Allie eMtcalf MD LAB - PATHOLOGY/CYTOLOGY ORD ERABLES Final Result DERMATOPATHOLOGY LABORATORY [facility] - Department of Dermatology [address], [address] [phone] documented in this encounter Visit Diagnoses Not on filedocumented in this encounter Care Teams Global Risk Management Director Relationship Specialty Start Date End Date Rogers Rey DO [address] [facility] [address] [place] [address] PCP - General 04/08/14 documented as of this encounter
--- OUTSIDE RECORDS SUMMARY | 2025-04-07 15:22 | XMS_ITS | Encounter Summary ---
Author Organization [facility] Address [address] [place] [address] Care Team Providers Care Clinical Engineering Manager Name Role Phone Rogers Rey MD Primary Care Provider [phone] Emory Mckeon MD Unavailable [phone] Nirmal Santa MD Unavailable [phone] Basilia Yeager NP Unavailable [phone] Kavitha Noguera MD Unavailable [phone] Blane Kaufman DO Primary Care Provider [phone] Encounter Details Date Type Department Care Team (Late st Contact Info) Description 11/29/2017 Orders Only [facility] [address] [place] [id number] Scanning, Provider Social History Tobacco Use Types Packs/Day Years Used Date Smoking Tobacco: Former Smokeless Tobacco: Never Alcohol Use Standard Drinks/Week Comments Yes 0 (1 standard drink = 0.6 oz pur e alcohol) Sex and Gender Information Value Date Recorded Sex Assigned at Not on file 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 Gender Identity Not on file Sexual Orientation Not on file documented as of this encounter Plan of Treatment Not on file documented as of this encounter Procedures Procedure Name Priority Date/Time Associated Diagnosis Comments SCAN - LABS 11/29/2017 documented in this encounter Results * SCAN - LABS (11/29/2017) Provider Scanning Final Result documented in this encounter Visit Diagnoses Not on filedocumented in this encounter Care Teams Clinical Engineering Manager Relationship Specialty Start Date End Date Rogers Rey MD [address] [place] [address] PCP - General 09/30/16 05/13/24 Blane Kaufman DO [address] [place] [address] PCP - General Internal Medicine 05/14/24 Emory Mckeon MD [address] [address] Consulting Physician Cardiology 11/19/18 Nirmal Santa MD [address] [address] Consulting Physician Cardiology 11/19/18 Basilia Yeager NP [address] [address] Nurse Practitioner Cardiology 11/19/18 Kavitha Noguera MD [address] [facility] [address] [place] [address] Referring Physician Pain Management 03/13/19 documented as of this encounter
--- OUTSIDE RECORDS SUMMARY | 2025-04-07 15:22 | XMS_ITS | Clinical Summary ---
Author Organization [facility] Address [address] [place] [address] Care Team Providers Care Waste Collector Name Role Phone Rogers Rey MD Primary Care Provider [phone] Allergies Active Allergy Reactions Criticality Noted Date Comments Iodine Rash Low 02/25/2020 Demeclocycline Rash Low 02/25/2020 Medications levothyroxine 50 MCG tablet Take 50 mcg by mouth every morning. Active potassium chloride CR 20 MEQ tablet Take 20 mEq by mouth 2 (two) times daily. Active furosemide 40 MG tablet Take 40 mg by mouth daily. Active clopidogrel 75 MG tablet Take 75 mg by mouth daily. Active pantoprazole EC 40 MG tablet Take 40 mg by mouth daily. Active lisinopril 10 MG tablet Take 10 mg by mouth daily. Active fluticasone propionate 50 MCG/ACT nasal spray 1 spray by Nasal route daily. Active traZODone 50 MG tabletIndicatio ns:takes 1-2 a day Take 50 mg by mouth nightly at bedtime. Indications: takes 1-2 a day Active atorvastatin 40 MG tablet Take 40 mg by mouth nightly at bedtime. Active budesonide-form oterol 80-4.5 MCG/ACT inhaler Inhale 2 puffs into the lungs 2 (two) times daily. Active nitroglycerin 0.[address] 0.4 mg under the tongue every 5 (five) minutes as needed for Chest Pain. Active ALPRAZolam 0.5 MG tablet Take 0.5 mg by mouth nightly as needed for Sleep. Active rivaroxaban 20 MG Tab tablet Take by mouth daily with supper. Take with food Active escitalopram 20 MG tablet Take 20 mg by mouth daily. Active NON FORMULARYIndica tions:10 mg daily of metoprolol 10 mg. Indications: 10 mg daily of metoprolol Active acyclovir 800 MG tablet Take 1 tablet by mouth 3 (three) times daily. 9 Active metoprolol succinate ER 25 MG 24 hr tablet Take 25 mg by mouth every morning. 0 Active valACYclovir 1 g tablet TK 2 TS PO BID AT FIRST SIGN 0 Active lisinopril 20 MG tablet Take 20 mg by mouth daily. 1 Active doxycycline hyclate 100 MG tablet Take 100 mg by mouth 2 (two) times daily. 0 Active valACYclovir 500 MG tablet Take 500 mg by mouth daily. 1 Active cyclobenzaprine 10 MG tablet TAKE 1 TABLET BY MOUTH EVERY NIGHT AT BEDTIME NEEDED FOR MUSCLE SPASM 1 Active Active Problems Problem Noted Date Diagnosed Date Lumbar radiculopathy 02/25/2020 Immunizations Immunization Administration Dates Next Due MODERNA COVID-19 (12+) MRNA, LNP-S, PF, 100 MCG/ 0.5 ML DOSE 08/04/2020,07/07/2020 Family History Medical History Relation Comments Heart Disease Father Cancer Mother Cancer Sister Relation Status Comments Father Mother Sister Alive Social History Tobacco Use Types Packs/Day Years [...] on file Sexual Orientation Not on file Last Filed Vital Signs Vital Sign Reading Time Taken Comments Blood Pressure 146/80 02/03/2021 1:32 PM CDT Pulse 61 02/03/2021 1:32 PM CDT Temperature 36.8 C (98.3 F) 02/03/2021 12:41 PM CDT Respiratory Rate 20 02/03/2021 1:32 PM CDT Oxygen Saturation 93% 02/03/2021 1:32 PM CDT Inhaled Oxygen Concentration - - Weight 114.3 kg (252 lb) 02/03/2021 12:41 PM CDT Height 193 cm (6' 4) 02/03/2021 12:41 PM CDT Body Mass Index 30.67 02/03/2021 12:41 PM CDT Plan of Treatment Health Maintenance Due Date Last Done Comments Colorectal Cancer Screening Colonoscopy (10 Years) 1959 Hepatitis C 1977 DTaP, Tdap and Td Vaccines ( 1 - Tdap) 1978 Pneumococcal Vaccine: 50+ Years (1 of 1 - PCV) 2009 Zoster Vaccines (1 of 2) 2009 COVID-19 Vaccine (3 - 2024-2 6 season) 2025 08/04/2020, 07/07/2020 RSV Immunization or 60+ Years (1 - 1-dose 75+ series) 2034 Meningococcal B Vaccine Aged Out No l onger eligible based on patient's age to complete this topic Meningococcal Vaccine Aged Out No liz eddie eligible based on patient's age to complete this topic RSV Immunizations Under 20 Months Aged Out No longer eligible b ased on patient's age to complete this topic Insurance [facility] Care Teams Waste Collector Relationship Specialty Start Date End Date Rogers Rey MD [address] [place] [address] [place] [address] PCP - General INTERNAL MEDICINE 01/08/21
--- OUTSIDE RECORDS SUMMARY | 2025-04-07 15:22 | XMS_ITS | Clinical Summary ---
Author Organization [facility] [place] [address] Address [address] [place] [address] Care Team Providers Care Fruit Grader Name Role Phone Emory Mckeon MD Unavailable Nirmal Santa MD Unavailable [phone] Basilia Yeager NP Unavailable [phone] Kavitha Noguera MD Unavailable Blane Kaufman DO Primary Care Provider [phone] Allergies Active Allergy Reactions Criticality Noted Date Comments Demeclocycline Rash,Redness Medium Iodinated Contrast Media Rash,Redness High Medications fluticasone (FLONASE) 50 mcg/actuation nasal sprayIndications :Allergic Rhinitis Administer 2 sprays into each nostril 2 (two) times a day Active levothyroxine (SYNTHROID, LEVOTHROID) 50 mcg tabletIndication s:hypothyroidism Take 1 tablet (50 mcg total) by mouth buckle strap drum operator before breakfast Active traZODone (DESYREL) 50 mg tabletIndication s:insomnia associated with depression Take 1 tablet (50 mg total) by mouth nightly Active ALPRAZolam (XANAX) 0.5 mg tablet Take 1 tablet (0.5 mg total) by mouth as needed for anxiety 0 07/11/19 19 Active escitalopram (LEXAPRO) 20 mg tabletIndication s:Anxiety with Depression Take 1 tablet (20 mg total) by mouth every morning 10/11/19 20 Active doxycycline (DORYX) 100 mg EC tabletIndication s:skin inflammation Take 120 mg by mouth every other day Active valACYclovir (VALTREX) 500 mg tabletIndication s:Skin/Soft Tissue Infection Take 1 tablet (500 mg total) by mouth buckle strap drum operator before breakfast 01/19/20 21 Active finasteride (PROSCAR) 5 mg tabletIndication s:benign prostatic hyperplasia with lower urinary tract sx Take 1 tablet (5 mg total) by mouth buckle strap drum operator before breakfast 03/31/20 21 Active aspirin (Enteric Coated Aspirin) 81 mg enteric coated tabletIndication s: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 Take 1 tablet (81 mg total) by mouth daily 30 tablet 11 05/18/[address] (PROTONIX) 40 mg EC tabletIndication s:Treatment of Non-Bleeding Gastric Disorder Take 1 tablet (40 mg total) by mouth every morning 12/28/19 23 Active nitroglycerin (NITROSTAT) 0.4 mg SL tabletIndication s: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 Place 1 tablet (0.4 mg total) under the tongue every 5 (five) minutes as needed for chest pain 25 tablet 3 09/27/19 24 Active furosemide (LASIX) 40 mg tablet TAKE 1 TABLET BY MOUTH DAILY 90 tablet 3 06/17/20 24 Active metoprolol XL (TOPROL-XL) 25 mg extended release tablet TAKE 1 TABLET(25 MG) BY MOUTH DAILY 90 tablet 3 06/24/20 24 Active atorvastatin (LIPITOR) 40 mg tablet TAKE 1 TABLET(40 MG) BY MOUTH DAILY 90 tablet 2 07/09/19 25 Active Wixela Inhub 250-50 mcg/dose diskus inhalerIndicatio ns:Bronchospasm Prevention with COPD Inhale 1 puff 2 (two) times a day 06/16/20 24 Active HYDROcodone-acet aminophen (NORCO) 5-325 mg per tabletIndication s:Pain Take 1 tablet by mouth every 6 (six) hours as needed for pain for up to 12 doses 12 tablet 08/01/19 25 Active losartan (COZAAR) 100 mg tablet Take 1 tablet (100 mg total) by mouth daily 90 tablet 3 01/29/20 25 026 Active potassium chloride ER 20 mEq CR tablet TAKE 1 TABLET(20 MEQ) BY MOUTH DAILY 90 tablet 1 03/24/20 25 Active Xarelto 20 mg tablet TAKE 1 TABLET(20 MG) BY MOUTH DAILY 90 tablet 3 03/30/20 25 Active rivaroxaban (Xarelto) 20 mg tablet Take 1 tablet (20 mg total) by mouth daily 90 tablet 3 06/25/20 24 025 Discontinued potassium chloride ER 20 mEq CR tablet TAKE 1 TABLET(20 MEQ) BY MOUTH DAILY 90 tablet 1 12/12/19 25 025 Discontinued Hospital, Clinic, or Other Facility Administered Medication Ordered Dose Route Frequency Start Date End Date Status perflutren lipid (DEFINITY) 1.5 mL in sodium chloride 0.9% 10 mL syringe 1 - 10 mL IV Once in imaging 03/29/2019 Active Active Problems Problem Noted Date Diagnosed Date Nasal obstruction 08/02/2024 Deviated nasal septum 07/10/2024 Nasal turbinate hypertrophy 07/10/2024 Nasal valve stenosis 07/10/2024 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 As long as they remain on this medication, an ECG will be performed every 6 months for monitoring. EKG for surveillance was performed today and does not demonstrate any changes that would prohibit the use of sotalol. Assessment & Plan (06/29/2018 4:37 PM OIL PUMPER): 12-lead ECG today does not demonstrate any changes that would prohibit continued use of sotalol. We will continue the patient on the same dose and schedule. As long as the patient continues on this medication, an ECG should be performed at least every 6 months to monitor for toxicity. Following ablation, we will attempt to discontinue this medication (perhaps substituting a beta-jil given the patient's history of ischemic heart disease). Anticoagulation management encounter 06/29/2018 Assessment & Plan (02/05/2025 12:18 PM CDT): - Remains compliant on rivaroxaban - denies any issues with bleeding - recommend continued therapy for thromboprophylaxis Assessment & Plan (02/14/2024 9:45 AM CDT): - Remains compliant on rivaroxaban - denies any issues with bleeding - recommend continued therapy for thromboprophylaxis Assessment & Plan (09/06/2018 1:55 PM OIL PUMPER): He currently remains anticoagulated on Xarelto 20 mg daily. He denies any issues of bleeding. It is recommended he remain anticoagulated for thromboprophylaxis. Assessment & Plan (06/29/2018 4:36 PM OIL PUMPER): The patient has a [id number] score of 1-2 (annualized risk of stroke 1.2-2.2 %). I have therefore recommended that he remain anticoagulated for thromboprophylaxis. History of coronary artery stent placement 06/13 Coronary artery disease involving iroquois coronar y artery 12/15/2016 Assessment & Plan (09/06/2018 1:54 PM OIL PUMPER): History of CABG and post CABG PCI. Normal LV function Hx of CABG 12/15/2016 Paroxysmal atrial fibrillation 12/15/2016 Assessment & Plan (02/05/2025 12:18 PM CDT): - status post radiofrequency catheter ablation (2018) and repeat (2020) with Dr. Mckeon - Maintains compliance on metoprolol and rivaroxaban - no medication changes were made today - EKG today demonstrates sinus rhythm - continues to report low atrial arrhythmia burden - follow up in 12 months for 12 lead EKG and clinic visit Assessment & Plan (02/14/2024 10:15 AM CDT): - status post radiofrequency catheter ablation (2018) and repeat (2020) with Dr. Mckeon - Maintains compliance on metoprolol and rivaroxaban - no medication changes were made today - EKG today demonstrates sinus rhythm - continues to report low atrial arrhythmia burden - follow up in 12 months for 12 lead EKG and clinic visit Assessment & Plan (09/06/2018 1:54 PM OIL PUMPER): Post radiofrequency catheter ablation of his paroxysmal atrial fibrillation on 07/24/2018. He remains on sotalol and denies any symptoms of indicate recurrence of his atrial fibrillation. No changes to his medications are made at this office visit. He can follow up in 2 months for an office visit and 12 lead EKG. Assessment & Plan (06/29/2018 4:35 PM OIL PUMPER): The patient has symptomatic paroxysmal atrial fibrillation that has been resistant to sotalol therapy. We discussed options for management, and the patient would like to consider ablation. We discussed the rationale for atrial fibrillation ablation, including the steps involved in ablation. I detailed the risks of the procedure, including vascular injury/hematoma, myocardial injury/perforation, stroke, myocardial infarction, pulmonary vein stenosis, thermal esophageal injury, and . I estimated a 70- 80% chance of freedom from long-term atrial arrhythmia, and the patient understands that occasionally a second procedure is necessary. Prior to ablation, I recommended that the patient undergo CT scanning with reconstruction of the left atrium, to assist with mapping and ablation. My office will make the appropriate arrangements. From: July CT, Kirk LS, Georgi JS, Sherri H, Carlos DANIEL, Johan JE, Felipe CLAUDIA, Dino PT, Farhan EPRSAUD, ME, Crispin KT, Deniz RL, Jarrod WG, Socorro PJ, Erin CM, Rhonda CW. 2014 AHA/ACC/HRS guideline for the management of patients with atrial fibrillation: a report of the [place] [employer]/[place] [employer] Association Task Force on Practice Guidelines and the Heart Rhythm Society. J Am Eduardo Cardiol 2014. 6.3. AF Catheter Ablation to Maintain Sinus Rhythm: Recommendations Class I AF catheter ablation is useful for symptomatic paroxysmal AF refractory or intolerant to at least 1 class I or III antiarrhythmic medication when a rhythm control strategy is desired ([phone]). (Level of Evidence: A) Patient encounter status 04/28/2016 Overview (10/06/2016): Surgical followup Resolved Problems Problem Noted Date Diagnosed Date Resolved Date Paroxysmal A-fib 03/15/2021 12/15/2022 Encounters Date Type Department Care Team Description 02/05/2025 10:00 AM CDT Office Visit [facility] [address] [facility] [address] [address] Jaclyn Raymundo NP Paroxysmal atrial fibrillation (HCC) (Primary Dx); Anticoagulation management encounter 01/28/2025 10:45 AM CDT Office Visit [facility] at [address] [place] [address] Nirmal Santa MD Hx of CABG (Primary Dx); Coronary artery disease involving iroquois coronary artery of iroquois heart without angina pectoris; Paroxysmal atrial fibrillation (HCC) from Last 3 Months Immunizations Immunization Administration Dates Next Due Influenza, Quadrivalent, Spl it, Preservative Free, Intramuscular 03/30/2016 Surgical History Surgery Date Site/Laterality Comments CORONARY ARTERY BYPASS GRAFT 03/28/2016 cabag x2 CORONARY STENT PLACEMENT 07/03/2016 - 07/02/20172016 CARDIAC CATHETERIZATION 07/03/2018 - 07/02/2019 CANDACE FUNDOPLICATION 07/03/2008 - 07/02/2009 Surgery for GERD CARPAL TUNNEL RELEASE Right early 2000s GANGLION CYST EXCISION Left x 3 KNEE ARTHROSCOPY Left x 2 KNEE ARTHROSCOPY Right CARDIAC ELECTROPHYSIOLOGY MAPPING AND ABLATION 07/24/2018 Dr. Mckeon, 2017 COLONOSCOPY SINUS SURGERY 07/03/2007 - 07/02/2008 multp nasal reconstruction OTHER SURGICAL HISTORY 07/03/2018 - 07/02/2019 Repair of Right Femoral Pseudoaneurysm STAPEDECTOMY Medical History Medical History Date Comments Sleep apnea cpap Arrhythmia Atrial fibrillation (HCC) Hyperlipidemia Coronary artery disease 03-18-2016 Thyroid disease Asthma GERD (gastroesophageal reflux disease) Heart disease Hypertension Fracture of nasal bones BPH (benign prostatic hyperplasia) Family History Medical History Relation Name Comments Heart attack Father Yazan Myocardial Infa rction; Cause of : Myocardial Infarction Cancer Mother Tawanna Anesthesia problems Neg Hx Relation Name Status Comments Father Yazan (Age 54) Mother Tawanna Social History Tobacco Use Types Packs/Day Years Used Date Smoking Tobacco: Never Passive Smoke Exposure: Never Smokeless Tobacco: Never Tobacco Cessation:Counseling Given: Not Answered Comments:occasional cigar Alcohol Use Standard Drinks/Week Comments Yes 0 (1 standard drink = 0.6 oz pur e alcohol) occassionally AUDIT-C Answer Date Recorded Q1: How often do you have a drink containing alcohol? 4 or more times a week 08/01/2024 Q2: How many drinks containi ng alcohol do you have on a typical day when you are drinking? 1 or 2 Q3: How often do you have si x or more drinks on one occasion? Never 08/01/2024 Personal Safety Answer Date Recorded Have you ever been in or are you currently in a harmful physical or emotional relationship or is someone making you feel afraid or unsafe? Denies 08/01/2024 Sex and Gender Information Value Date Recorded Sex Assigned at Not on file Legal Sex Male 2:32 AM OIL PUMPER Gender Identity Not on file Sexual Orientation Not on file Obstetrics History Last Filed Vital Signs Vital Sign Reading Time Taken Comments Blood Pressure 152/74 02/05/2025 9:58 AM CDT Pulse 54 02/05/2025 9:58 AM CDT Temperature 36.3 C (97.3 F) 08/01/2024 9:35 AM OIL PUMPER Respiratory Rate 25 08/01/2024 10:35 AM OIL PUMPER Oxygen Saturation 94% 01/28/2025 10:45 AM CDT Inhaled Oxygen Concentration - - Weight 125.6 kg (277 lb) 02/05/2025 9:58 AM CDT Height 193 cm (6' 4) 02/05/2025 9:58 AM CDT Body Mass Index 33.72 02/05/2025 9:58 AM CDT Plan of Treatment Health Maintenance Due Date Last Done Comments Colon Cancer Screening-Colonoscopy 1959 Depression Screening 1959 Hepatitis C Screening 1959 Prostate Cancer Screening-PSA 1959 DTaP/Tdap/Td Vaccine (1 - Tdap) 1970 Hepatitis B Screening 1977 Pneumococcal vaccine 65+ (1 of 1 - PCV) 2009 Zoster Vaccine (1 of 2) 2009 Well Visit 65+ 01/22/2024 Covid-19 Vaccine (3 - season) 03/03/202508/2020, 07/07/2020 Influenza Vaccine (#1) 2025 9, 04/05/2018, 03/30/2016 Fall Risk Assessment 08/01/2025 08/01/2024 Medical Devices Implanted Type Area Lead Recoverer Device Identifier Shelf Expiration Date Model / Serial / Lot [employer] [id number] System 6-12fr Mvp Venous Closure Vascade - [id number] - [id number] Implanted:Qty: 1 on 03/15/2021 by Emory Mckeon MD at [facility] Collagen Right: Groin [employer] 12/30/2022 800-612C- 10U / [id number] 07A / [id number] [employer] [id number] Vascade 6/7fr Bioabsorbable Vascular System Compression Collagen - [id number] - [id number] Implanted:Qty: 1 on 03/15/2021 by Emory Mckeon MD at [facility] Collagen Right: Groin [employer] 12/30/2022 700-580I- 05U / [id number] / [id number] [employer] [id number] System 6-12fr Mvp Venous Closure Vascade - [id number] - [id number] Implanted:Qty: 1 on 03/15/2021 by Emory Mckeon MD at [facility] Collagen Right: Groin [employer] 12/30/2022 800-612C- 10U / [id number] [id number] / [id number] [id number] [employer] [id number] System 6-12fr Mvp Venous Closure Vascade - [id number] - [id number] Implanted:Qty: 1 on 03/15/2021 by Emory Mckeon MD at [facility] Collagen Left: Groin [employer] 12/30/2022 800-612C- 10U / [id number] 07A / [id number] [id number] Implantech [employer] 3x2in Nonreinforced Permanent Implantable Thk.04in 23-700-40 - [id number] Implanted:Qty: 1 on 08/01/2024 by Yazan Ji MD at [facility] N/A: Nose Implantech [id number] 05/05/2028 23-700-40 / / [id number] [employer] Graft Tissue Placental Stem Cell Regn Maik 2x3cm Freeze Dried No-1230 - [id number] - [id number] Implanted:Qty: 1 on 08/01/2024 by Yazan Ji MD at [facility] N/A: Nose [employer] 09/18/2028 NO-1230 / [id number] / [id number] Procedures Procedure Name Priority Date/Time Associated Diagnosis Comments ECG 12-LEAD Routine 02/05/2025 10:13 AM CDT Paroxysmal atrial fibrillation (HCC) POCT LIPID PANEL Routine 01/28/2025 2:24 PM CDT Coronary artery disease involving iroquois coronary artery of iroquois heart without angina pectoris from Last 3 Months Results * ECG 12 lead (02/05/2025 10:13 AM CDT) Jaclyn Raymundo NP ECG ORDERABLES Final Result * (ABNORMAL) POCT lipid panel (01/28/2025 2:24 PM CDT) Cholesterol, POC 163 <200 MG/DL Triglycerides, POC 650(A) <=149 mg/dL Cholesterol Total, POC 163 30 - 199 mg/dL Capillary blood 01/28/2025 2 :24 PM CDT us Nirmal Santa MD POINT OF CARE TEST ORDER LASHONDA Final Result from Last 3 Months Insurance [facility] [facility] AET MEDICARE AET MEDICARE Advance Directives For more information, please contact: [phone] * Full Code (Latest Code Status on File) Date Activated Date Inactivated Comments 03/15/2021 5:16 PM 03/17/2021 8:15 PM * Full Code Date Activated Date Inactivated Comments 01/22/2019 12:01 PM 01/24/2019 5:36 PM * Full Code Date Activated Date Inactivated Comments 07/24/2018 4:45 PM 07/26/2018 5:26 PM Care Teams Fruit Grader Relationship Specialty Start Date End Date Blane Kaufman DO PCP - General Internal Medicine 05/14/24 Emory Mckeon MD Consulting Physician Cardiology 11/19/18 Nirmal Santa MD Consulting Physician Cardiology 11/19/18 Basilia Yeager NP Nurse Practitioner Cardiology 11/19/18 Kavitha Noguera MD Referring Physician Pain Management 03/13/19
--- NOTE | 2025-04-29 18:24 | WPDSLEEPSTUD ---
Sleep Study Date of Study: 04/07/25 Ordering Provider: Aldo Hermosillo APRN Interpreting Physician: Sheree Dowd DO Sleep Study Type: Split Polysomnogram Height: 1.93 m Weight: 126.099 kg Body Mass Index: 33.8 Neck Circumference (inches): 22 [place]: 4 Reason for Sleep Study Previously diagnosed sleep apnea and is currently using CPAP Sleep History The patient is a 65-year-old male that had a sleep study ordered by the Pulmonary group for evaluation of sleep apnea. The patient frequently awakens from sleep short of breath. He rarely awakens at night with heartburn, belching or cough. He constantly snores loud enough that others complain. He occasionally has trouble sleeping when he has a cold. He rarely wakes up gasping for air throughout the night. He frequently has breathing problems at night observed by himself or others. He occasionally sweats excessively at night. He occasionally has heart palpitations or irregular heartbeats during the night. He rarely falls asleep during the day but never while driving. He denies sleep paralysis, cataplexy and hypnagogic/ hypnopompic hallucinations. He denies having trouble at school or work due to sleepiness. He rarely feels afraid of going to sleep. He occasionally has nightmares. He occasionally remembers his dreams. He constantly has thoughts racing through his mind. He occasionally feels sad or depressed. He frequently has anxiety. Occasionally has muscular tension. He occasionally notices parts of his body jerk. He occasionally kicks during the night. He rarely has crawling and aching feelings in his legs and occasionally has leg pain during the night. He occasionally grinds his teeth during sleep and occasionally awakens with morning jaw pain. He is frequently bothered by pain during the day and frequently awakened by pain during the night. He frequently wakes up feeling stiff in the morning. He frequently wakes up with sore or achy muscles. He frequently wakes up with pain in the neck, spine and other joints. He goes to bed at 10:00 p.m. every night. It takes him 2 hours to fall asleep. He wakes up 1-2 times throughout the night for unknown reasons and it takes 30 minutes to fall back asleep. He wakes up between 7-8 a.m. every morning. He typically gets 6-8 hours of sleep per night. Will stay in bed for 30-60 minutes after waking up in the morning. He currently lives with his . He denies consuming any caffeinated beverages within 2 hours of bedtime. He denies engaging in physical exercise before bedtime. He will watch television before falling asleep. He denies taking naps in afternoon or the evening. He consumes 2 cups of coffee every morning. He consumes 3 alcoholic beverages per day. He denies tobacco and recreational drug use. [facility] Past Medical History Medical History Left foot pain Effusion of knee joint Cough Wheezing Unspecified asthma, uncomplicated Severe obstructive sleep apnea RUQ abdominal pain Renal cyst Pure hypercholesterolemia Primary osteoarthritis of right knee Primary osteoarthritis of left knee Primary insomnia Peripheral neuropathic pain Other hyperlipidemia Other fatigue Other chronic pain Osteoarthritis of knee, unspecified On mcc drug therapy Myalgia Mixed hyperlipidemia Left arm numbness Knee effusion, left Hyperglycemia History of anxiety Gastro-esophageal reflux disease without esophagitis Former smoker Encounter to establish care with new doctor Encounter for screening for malignant neoplasm of prostate Elevated PSA DUNN (dyspnea on exertion) Colon cancer screening Chest pain, unspecified Cervicalgia Cervical spondylosis Benign essential hypertension AK (actinic keratosis) Acute pain of left knee Acute bilateral knee pain Arthritis of left knee Arthritis of right knee Arthritis of right hip High cholesterol Afib History of hypothyroidism Left knee DJD Chest discomfort Hypertension Chest pain due to CAD Depression Excessive bleeding Urinary frequency Knee effusion, right Degenerative joint disease of right elbow Right knee DJD Hematuria FRANCISCO (obstructive sleep apnea) Increased BMI Heart disease Thyroid disorder Coronary artery disease Asthma Neuritis of right ulnar nerve Arthritis of right elbow Anxiety Essential (primary) hypertension Fatigue Hypothyroidism Surgical History Surgical History History of coronary artery bypass graft x 2 S/P CABG x 2 2015 [place] to the Left anterior descending and SVG to the right PDA, Dr. Calvin, [facility] Status post ablation of atrial fibrillation History of intravascular stent placement Stent in the right posterolateral April 2017 History of cardiac radiofrequency ablation Family History Family History Sibling Family history of malignant neoplasm of breast in first degree relative Mother Family history of malignant neoplasm of breast in first degree relative Patient's mother is Father Patient's father is Family history of heart disease in male family member before age 55 Social History Social History Social History: . of [facility]. One daughter who lives in [place]. Smoking status: Never smoker Second hand tobacco smoke exposure: Yes Alcohol intake: current Drinks per week: 10 Substance use: never Substance use type: does not use Lack of Transportation: No Lack of Food: Never True Current Housing: I Have Housing Concerned About Future Housing: No Difficulty Paying Gas/Electric Bills: No Difficulty Paying for Meds: No Currently Unemployed: No Education: Bachelor's Degree Difficulty w/ Childcare or Family Care: No Living arrangements: with family Gender identity (if verbalized by the patient): Male Spiritual care concerns: No Medications Home Medications ?Medication ?Instructions ?Recorded ?Confirmed ?Type atorvastatin 40 mg tablet (Lipitor) 40 mg PO HS 09/04/19 02/27/25 History nitroglycerin 0.4 mg sublingual 0.4 mg sublingual Q5M PRN Chest 09/04/19 02/27/25 History tablet Pain finasteride 5 mg tablet 5 mg PO DAILY 04/07/21 02/27/25 History metoprolol succinate 25 mg 25 mg PO DAILY 05/10/21 02/27/25 History tablet,extended release 24 hr rivaroxaban 20 mg tablet (Xarelto) 20 mg PO HS 05/10/21 02/27/25 History aspirin 81 mg tablet,delayed 81 mg PO DAILY 08/03/21 02/27/25 History release potassium chloride 20 mEq meq PO 09/02/24 02/27/25 History tablet,extended release(part/cryst) fluticasone propionate 50 2 spray intranasal DAILY PRN nasal 09/13/24 02/27/25 Rx mcg/actuation nasal congestion #15.8 mL spray,suspension furosemide 40 mg tablet 60 mg PO QAM 10/14/24 02/27/25 History pantoprazole 40 mg tablet,delayed 40 mg PO QAM #90 tabs 11/19/24 02/27/25 Rx release fluticasone 250 mcg-salmeterol 50 See Rx Instructions .Route 12/18/24 02/27/25 Rx mcg/dose blistr powdr for .COMPLEX #60 ea inhalation (Wixela Inhub) escitalopram oxalate 20 mg tablet See Rx Instructions .Route 01/06/25 02/27/25 Rx .COMPLEX #90 tabs alprazolam 0.5 mg tablet 0.5 mg PO BID PRN anxiety #60 tabs 01/13/25 02/27/25 Rx levothyroxine 50 mcg tablet See Rx Instructions .Route 02/06/25 02/27/25 Rx .COMPLEX #90 tabs losartan 100 mg tablet 100 mg PO DAILY 02/17/25 02/27/25 History valacyclovir 500 mg tablet mg PO PRN 02/17/25 02/27/25 History tirzepatide (weight loss) 2.5 2.5 mg (0.5 mL) subcut WEEKLY #2 mL 02/27/25 02/27/25 Rx mg/0.5 mL subcutaneous pen injector (Zepbound) eszopiclone 2 mg tablet 2 mg PO ONCE #1 tablet 03/27/25 03/27/25 Rx trazodone 50 mg tablet 50 mg PO HS #90 tabs 04/22/25 Rx Sleep Procedure A full night split study using the [employer]illa RF SleepTractive multi-channel system recorded the standard physiologic parameters including EEG, EOG, submentalis EMG, anterior tibialis EMG, EKG, body position, nasal and oral airflow using nasal pressure sensor and thermistor.? Respiratory parameters of chest and abdominal movements were recorded with Respiratory Inductance Plethysmography belts. Oxygen saturation was recorded by pulse oximetry. Video monitoring was also performed. Sleep stages, periodic limb movements, and EEG arousals were scored in 30 second epochs according to the criteria of the AASM Scoring Manual. The Apnea-Hypopnea Index was calculated using CMS guidelines for definition of hypopnea with 4% O2 desaturations while scoring respiratory events. Sleep Architecture During the diagnostic portion of the study, the total recording time was 169.3 minutes. The total sleep time was 140.0 minutes. Sleep latency was 15.8 minutes.? REM latency was 95.0 minutes. Sleep Efficiency was 82.7%. The patient had 9 awakenings for an awakening index of 3.9. Wake after sleep onset time was 13.5 minutes. The patient spent 24.5 minutes, 17.5% of total sleep time in Stage N1. The patient spent 114.5 minutes, 81.8% in Stage N2. The patient spent 0.0 minutes, 0.0% in Stage N3. The patient spent 1.0 minutes, 0.7% in Stage REM sleep. At 01:18:02 AM the patient was placed on PAP treatment and was titrated at pressures ranging from 5 cm H20 up to 16 cm H20 During the treatment portion of the study, the total recording time was 284.2 minutes.? The total sleep time was 255.5 minutes. Sleep latency was 9.0 minutes. REM latency was 48.0 minutes. Sleep Efficiency was 89.9%. Wake after Sleep Onset time was 20.0 minutes. The patient spent 39.0 minutes, 15.3% of total sleep time in Stage N1. The patient spent 145.0 minutes, 56.8% in Stage N2. The patient spent 0.0 minutes, 0.0% in Stage N3. The patient spent 71.5 minutes, 28.0% in Stage REM. Respiratory Analysis During the diagnostic portion of the study, the patient had 37 hypopneas and 122 obstructive apneas for an overall Apnea Hypopnea Index of 68.1 events per hour. The REM Apnea Hypopnea Index was 60.0. The NREM Apnea Hypopnea Index was 68.2. The patient had a Central Apnea Hypopnea Index of 0. There was no evidence of Elio-Correa Respirations. During the treatment portion of the study, the patient had 51 hypopneas, 21 obstructive apneas, 2 mixed apneas, and 5 central apneas for an overall Apnea Hypopnea Index of 18.6 events per hour. The REM Apnea Hypopnea Index was 2.5. The NREM Apnea Hypopnea Index was 24.8. The patient had a Central Apnea Hypopnea Index of 1.2. There was no evidence of Elio-Correa Respirations. The patient was started on CPAP 5 cm H2O and titrated to CPAP 16 cm H2O due to obstructive apneas and hypopneas. The patient was able to fall asleep starting on CPAP 5 cm H2O. The patient was able to achieve REM sleep on CPAP 9 cm H2O. On CPAP 15 cm H2O, the patient spent 19.5 minutes in NREM and 42.5 minutes in REM with 2 central apneas and 1 mixed apnea resulting in an AHI of 2.9. On CPAP 16 cm H2O, the patient spent 27.5 minutes in NREM and 3 minutes in REM with no respiratory events, resulting in an AHI of 0. The patient had a sleep efficiency of 97.6% on 15 cm H2O and 92.4% on 16 cm H2O. Arousals During the diagnostic portion of the study, there were a total of 112 arousals for an arousal index of 48.0.? There were 71 respiratory arousals for an index of 30.4. There were 0 periodic limb movement arousals for an index of 0.? There were 17 isolated limb movement arousals for an index of 7.3. There were 24 spontaneous arousals for an index of 10.3. uring the treatment portion of the study, there were a total of 109 arousals for an index of 25.6.? There were 45 respiratory arousals for an index of 10.6. There were 12 periodic limb movement arousals for an index of 2.8.? There were 7 isolated limb movement arousals for an index of 1.6. There were 46 spontaneous arousals for an index of 10.8. Periodic Limb Movements During the diagnostic portion of the study, the patient had 22 isolated limb movements with an index of 9.4. The patient had 0 periodic limb movements with an index of 0. The patient had a total of 22 limb movements with a total limb movement index of 9.4. During the treatment portion of the study, the patient had 49 isolated limb movements with an index of 11.5. The patient had 87 periodic limb movements with an index of 20.4, which is elevated (normal < 15). The patient had a total of 136 limb movements with a total limb movement index of 31.9. Oximetry Data During the diagnostic portion of the study, the patient had an average oxygen saturation of 93.4% in wake with a minimum oxygen saturation of 84% and a maximum oxygen saturation of 97%. The patient had an average oxygen saturation of 90.6% in sleep with a minimum oxygen saturation of 81.0% and a maximum oxygen saturation of 97.0%. The patient had 160 oxygen desaturations resulting in an Oxygen Desaturation Index of 68.6. The patient spent 23.2 minutes, 145 of total sleep time with an oxygen saturation less than 88%. During the treatment portion of the study, the patient had an average oxygen saturation of 93.2% in wake with a minimum oxygen saturation of 87.0% and a maximum oxygen saturation of 97.0%. The patient had an average oxygen saturation of 92.3% in sleep with a minimum oxygen saturation of 83.0% and a maximum oxygen saturation of 97.0%. The patient had 89 oxygen desaturations resulting in an Oxygen Desaturation Index of 20.9. The patient spent 9.5 minutes, 3.4% of total sleep time with an oxygen saturation less than 88%. Snoring Profile Moderate snoring was present in the baseline portion of the study. The snoring resolved once the patient was titrated to CPAP 16 cm H2O. Cardiac Profile The EKG lead showed normal sinus rhythm with rare PVCs. During the diagnostic portion of the study, the average pulse rate was 48.2 bpm.? The minimum pulse rate was 45.0 bpm. The maximum pulse rate was 55.0 bpm. During the treatment portion of the study, the average pulse rate was 47.1 bpm.? The minimum pulse rate was 42.0 bpm. The maximum pulse rate was 52.0 bpm. EEG Profile No signs of seizure activity seen. Assessment and Plan Assessment and Plan (1) FRANCISCO (obstructive sleep apnea): Code(s): G47.33 - Obstructive sleep apnea (adult) (pediatric) Status: Acute Assessment and Plan: In the baseline portion of the study, the patient had an overall AHI of 68.1 with desaturation down to 81%. This is consistent with severe sleep apnea. The patient was started on CPAP 5 cm H2O and titrated to CPAP 16 cm H2O due to obstructive apneas and hypopneas. I recommend that the patient be prescribed CPAP 16 cm H2O, size medium Resmed AirFit F20 full face mask, CPAP filters/tubing and heated humidity. This should be used with all episodes of sleep.? Compliance should be reviewed within 31-90 days of starting therapy for usage greater than 4 hours per night greater than 70% of the nights. The patient should be asked about symptoms such as?excessive daytime sleepiness, quality of sleep, decreased nocturia, increased?mental functioning such as memory, mood, and concentration. Data The data obtained during this sleep study is adequate for interpretation. Certification This sleep study has been reviewed by a board certified sleep medicine physician.
[2025-04-29 18:26] VITALS: BMI 33.8
== END 2025-04-08 06:19 | disposition home or self-care (01) ==
LOC: ANHCSM 14:39
PROVIDERS: PCP Internal Medicine; Visit Provider Nurse Practitioner Family
DX: G47.33 Obstructive sleep apnea (adult) (pediatric) (principal)
CPT/HCPCS: 95811